=== PATIENT | male | born 1940 | race Caucasian/White ===

== ENCOUNTER 2020-05-21 12:43 | Emergency (ER) | payer MEDICARE, SELFPAY ==
--- NOTE | 2020-05-21 12:45 | XR_ITS ---
WS: [id number] XR chest 1V portable [id number] REASON FOR EXAM: cp FINDINGS: The chest is unchanged compared to 03/28/2019. The heart and mediastinum are within normal limits. The thoracic aorta is normal. Calcified granulomatous changes in both hemithoraces. No active pulmonary parenchymal pleural disease. Moderate degenerative change in the lower thoracic spine and in both shoulders. XR/XR chest 1V portable [id number] IMPRESSION: No acute chest abnormality.
--- NOTE | 2020-05-21 12:45 | ECG_ITS ---
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 Measurements Intervals [place] Rate: 79 P: 62 GA: 189 QRS: 30 QRSD: 79 T: 80 QT: 320 QTc: 369 Interpretive Statements SINUS RHYTHM SEPTAL MYOCARDIAL INFARCTION [40+ ms Q WAVE IN V1/V2], OF INDETERMINATE AGE Compared to ECG 04/28/2018 12:54:01 Myocardial infarct finding now present First degree AV block no longer present T-wave abnormality no longer present Electronically Signed On 05-21-2020 19:29:19 IT GENERALIST by Barb Rea M.D. [email or web address].Dadasouth sunflower county hospitalPocketMobileselect medical [facility].[employer]/store/NU/[id number] hines
[2020-05-21 12:50] VITALS: BP 115/68; PULSE 81; RESP 18; TEMP 36.6; O2SAT 97; BMI 27.3
--- NOTE | 2020-05-21 13:08 | ED_ITS ---
HPI - General Adult General: Chief complaint: General Medical Stated complaint: pressure on chest/weakness Time Seen by Provider: 05/21/20 12:56 Source: patient Mode of arrival: ambulatory Limitations: no limitations History of Present Illness: HPI narrative: 79-year-old male states has been having lower abdominal pain over the last 4 to 5 days. He states he had nausea and lack of appetite as well. States he has had some radiation into his chest. Denies any shortness of breath. Denies any worsening improving factors. He states pain is currently a 7 out of 10. He denies any fevers. Associated symptoms: Reports chest pain, nausea and vomiting; Deny dyspnea, headache(s) or rash Review of Systems Const: Denies: fever(s), chills, body aches or change in appetite Eyes: Denies: blurry vision or eye discomfort ENMT: Denies: throat pain or dental pain Card: Reports: chest pain Resp: Denies: dyspnea GI: Reports: abdominal pain, nausea and vomiting : Denies: dysuria Musc: Denies: neck pain or back pain Skin/Breast: Denies: rash Neuro: Denies: headache(s) Psych: Denies: depression Mark/Lymph: Denies: easy bruising All/Imm: Denies: urticaria Physical Exam Const: COMMON NORMALS: no acute distress, patient oriented x3 and healthy appearing HENMT: COMMON NORMALS: normocephalic and atraumatic HEAD & SCALP: normocephalic and atraumatic Eye: COMMON NORMALS: Equal, round and reactive pupils present and EOMs intact bilaterally PUPIL: Yes Equal, round and reactive pupils present Neck/C-Spine: COMMON NORMALS: full ROM and supple Chest: COMMONS NORMALS: normal inspection of the chest and normal palpation of entire chest wall Resp: COMMON NORMALS: normal respiratory effort, No retractions, No use of accessory muscles and clear to auscultation bilaterally AUSCULTATION: clear to auscultation bilaterally Cardio: COMMON NORMALS: regular rate, regular rhythm and No murmurs present (Cardio) RATE: regular rate RHYTHM: regular rhythm GI: COMMON NORMALS: Normal to inspection, nondistended, normoactive bowel sounds present, Soft to palpation, non-tender and no masses PALPATION: Yes Soft to palpation Extremity: COMMON NORMALS: normal to inspection and full ROM Neuro: COMMON NORMALS: patient oriented x3, moves all extremities and no focal motor deficits Psych: COMMON NORMALS: mental status grossly normal, Normal thought process present and cooperative THOUGHT PROCESS: Normal thought process present Skin: COMMON NORMALS: no rashes or lesions noted and no wounds GENERAL SKIN EXAM: no rashes or lesions noted Course Vital Signs: Vital signs: Vital Signs Temperature 97.8 F 05/21/20 12:50 Pulse Rate 79 05/21/20 16:10 Respiratory Rate 14 05/21/20 16:10 Blood Pressure 129/61 05/21/20 16:10 Pulse Oximetry 99 05/21/20 16:10 MDM - General Adult MDM Narrative: Medical decision making narrative: Patient presents here with abdominal pain chest pain he does have a esophagitis. He also has a duodenitis. This likely causing his pain with swallowing along with chest pain and nausea. I offered him admission he states he rather follow-up outpatient. We will start him on Protonix amoxicillin and clarithromycin and will have him follow-up with Dr. Tai that he likely needs an EGD. He is return to ER if he has any worsening symptoms. He understands and agrees to the plan. Lab Data: Labs: Lab Results 05/21/20 05/21/20 05/21/20 Range/Units 13:16 13:16 13:16 WBC 17.2 H (4.0-10.0) 10^3/ uL RBC 5.01 (4.1-5.3) 10^6/u L Hgb 13.8 (11.7-16.6) g/dL Hct 43.6 (42.0-52.0) % MCV 87.0 (80-94) fL MCH 27.5 L (28.0-34.0) pg MCHC 31.7 (30.0-36.0) g/dL RDW 16.1 H (12.1-15.1) % Plt Count 142 (130-400) 10^3/c mm MPV 12.0 H (7.4-10.4) fL Neut % (Auto) 83.5 % Lymph % (Auto) 11.3 % [place] % (Auto) 4.5 % Eos % (Auto) 0.1 % Baso % (Auto) 0.2 % Neut # (Auto) 14.36 H (1.8-7.7) 10^3/u L Lymph # (Auto) 2.0 (0.8-4.8) 10^3/u L [place] # (Auto) 0.8 (0.2-0.9) 10^3/u L Eos # (Auto) 0.0 (0.0-0.8) 10^3/u L Baso # (Auto) 0.0 (0.0-0.1) 10^3/u L Nucleated RBC % (a uto) 0 % Nucleated RBCs # 0.0 /100WBC Sodium Cancelled Potassium Cancelled Chloride Cancelled Carbon Dioxide Cancelled Anion Gap Cancelled BUN Cancelled Creatinine Cancelled GFR Calculation Cancelled Glucose Cancelled Calculated Osmolal ity Cancelled Calcium Cancelled Total Bilirubin Cancelled AST Cancelled ALT Cancelled Alkaline Phosphata se Cancelled Troponin T Baselin e Cancelled Troponin T 120 Min bradley (0-15) ng/L Delta Troponin T (0-10) ABS# Total Protein Cancelled Albumin Cancelled Globulin Cancelled Lipase Cancelled 05/21/20 05/21/20 05/21/20 Range/Units 14:50 14:50 17:22 WBC (4.0-10.0) 10^3/ uL RBC (4.1-5.3) 10^6/u L Hgb (11.7-16.6) g/dL Hct (42.0-52.0) % MCV (80-94) fL MCH (28.0-34.0) pg MCHC (30.0-36.0) g/dL RDW (12.1-15.1) % Plt Count (130-400) 10^3/c mm MPV (7.4-10.4) fL Neut % (Auto) % Lymph % (Auto) % [place] % (Auto) % Eos % (Auto) % Baso % (Auto) % Neut # (Auto) (1.8-7.7) 10^3/u L Lymph # (Auto) (0.8-4.8) 10^3/u L [place] # (Auto) (0.2-0.9) 10^3/u L Eos # (Auto) (0.0-0.8) 10^3/u L Baso # (Auto) (0.0-0.1) 10^3/u L Nucleated RBC % (a uto) % Nucleated RBCs # /100WBC Sodium 133 L Potassium 4.4 Chloride 97 L Carbon Dioxide 22 Anion Gap 18.4 BUN 47 H Creatinine 1.9 H GFR Calculation Not Reportable Glucose 253 H Calculated Osmolal ity 297 H Calcium 9.5 Total Bilirubin 0.5 AST 9 ALT 14 Alkaline Phosphata se 114 Troponin T Baselin e 51 H Troponin T 120 Min bradley 50.10 H (0-15) ng/L Delta Troponin T -0.90 L (0-10) ABS# Total Protein 7.3 Albumin 4.0 Globulin 3.3 Lipase 44 Imaging Data^: CXR: Attestation: I personally reviewed and interpreted this imaging study as follows: Radiologist's impression: [facility] [address] [place] [id number] XRay Report Signed Patient: Fahad Snow Unit #: [id number] : 1940 Age/Sex: 79 / M ADM Date: 05/21/20 Loc: ER Room/Bed: Attending Dr: Ordering Provider/Ordering MD: Jose Schreiber MD Date of Service: 05/21/20 Procedure(s): XR chest 1V portable [id number] Accession Number(s): [id number] Report Number: [id number] WS: [id number] XR chest 1V portable [id number] REASON FOR EXAM: cp FINDINGS: The chest is unchanged compared to 03/28/2019. The heart and mediastinum are within normal limits. The thoracic aorta is normal. Calcified granulomatous changes in both hemithoraces. No active pulmonary parenchymal pleural disease. Moderate degenerative change in the lower thoracic spine and in both shoulders. XR/XR chest 1V portable [id number] IMPRESSION: No acute chest abnormality. CT Chest: Radiologist's impression: [facility] [address] [place] [address] Scan Report Signed Patient: Fahad Snow Unit #: [id number] : 1940 A cct#:[id number] Age/Sex: 79 / M ADM Date: 05/21/20 Loc: ER Room/Bed: Attending Dr: Ordering Provider/Ordering MD: Jose Schreiber MD Date of Service: 05/21/20 Procedure(s): CT abdomen pelvis w con* [id number] Accession Number(s): [id number] Report Number: [id number] PROCEDURE INFORMATION: Exam: CT Abdomen And Pelvis With Contrast Exam date and time: 05/21/2020 5:14 PM Age: 79 years old Clinical indication: Nausea and vomiting and other: Loss of appetite; Abdominal pain; Prior surgery; Surgery type: Gb; Additional info: Abd pain TECHNIQUE: Imaging protocol: Computed tomography of the abdomen and pelvis with intravenous contrast. Radiation optimization: All CT scans at this facility use at least one of these dose optimization techniques: automated exposure control; mA and/or kV adjustment per patient size (includes targeted exams where dose is matched to clinical indication); or iterative reconstruction. Contrast material: VISI 320; Contrast volume: 95 ml; Contrast route: INTRAVENOUS (IV); COMPARISON: CT Abdomen/Pelvis o [id number] 05/23/2013 7:10 PM RADIATION DOSE METRICS: Total DLP (mGy-cm): 784.13 FINDINGS: Pleural space: There is a trace right pleural effusion. Mediastinal space: There is circumferential wall thickening of the distal esophagus new since the prior exam concerning for esophagitis or esophageal neoplasm. Liver: There is a diffuse decrease in hepatic parenchymal density, consistent with fatty infiltration. There is a 7 mm hypodensity in the liver image 17 that is too small to characterize. Gallbladder and bile ducts: There has been a cholecystectomy. There is no common bile duct dilation. Pancreas: The pancreas is normal. Spleen: Normal. No splenomegaly. Adrenal glands: The adrenal glands are normal. Kidneys and ureters: There is no evidence of hydronephrosis. There is no evidence of renal calcifications. There are multiple renal hypodensities that cannot be further characterized on the current examination. There is atrophy of the right kidney. There is a 4.0 cm midpole simple cyst in the right kidney. No follow-up is necessary. Stomach and bowel: The gastric wall appears thickened but the stomach is also partially collapsed. The wall of the duodenum appears thickened although it is mildly distended with fluid. There is also haziness of the adjacent fat concerning for duodenitis. There is moderately excessive colonic stool content. Mild diverticulosis is present in the distal colon. There is no evidence of colitis/diverticulitis. There is no evidence of intestinal perforation or obstruction. Some of the loops of proximal small bowel demonstrate mild wall thickening and enhancement that suggests mild enteritis. Appendix: No evidence of appendicitis. Intraperitoneal space: Unremarkable. No free air. No significant fluid collection. Vasculature: .The aorta demonstrates moderate atherosclerotic calcification. Lymph nodes: Unremarkable.No enlarged lymph nodes. Urinary bladder: There is nonspecific bladder wall thickening. This may be related to incomplete distention. Reproductive: The prostate demonstrates mild nonspecific enlargement. The seminal vesicles are normal. Bones/joints: There is osteopenia. There are moderate degenerative changes in the spine. No acute bony abnormality. Soft tissues: There are small bilateral fat filled inguinal hernias. CT/CT abdomen pelvis w con* [id number] IMPRESSION: 1. There is circumferential wall thickening of the distal esophagus new since the prior exam concerning for esophagitis or esophageal neoplasm. 2. The wall of the duodenum appears thickened although it is mildly distended with fluid. There is also haziness of the adjacent fat concerning for duodenitis. Endoscopy would be helpful to further evaluate the duodenum and esophagus. 3. Mild wall thickening of the proximal loops of small bowel suggests mild enteritis. EKG Data^: EKG 1: Attestation: I personally reviewed and interpreted this EKG as follows: EKG interpretation date: 05/21/20 EKG interpretation time: 13:40 Interpretation: nsr hr [address] or t wave abnormalities qrs 79 qtc 355 Computer generated interpretation: Chest X-Ray 05/21/20 12:45 IMPRESSION: No acute chest abnormality. Abdomen/Pelvis CT 05/21/20 13:08 IMPRESSION: 1. There is circumferential wall thickening of the distal esophagus new since the prior exam concerning for esophagitis or esophageal neoplasm. 2. The wall of the duodenum appears thickened although it is mildly distended with fluid. There is also haziness of the adjacent fat concerning for duodenitis. Endoscopy would be helpful to further evaluate the duodenum and esophagus. 3. Mild wall thickening of the proximal loops of small bowel suggests mild enteritis. COMMENTS: Consistent with the [employer]'s Incidental Findings Committee white paper (J Am Duyen Radiol 2018): Any incidental renal lesion less than 1 cm or classified as too small to characterize, or any incidental cystic renal lesion characterized as simple-appearing, is likely benign. No follow-up imaging is recommended for these lesions per consensus recommendations based on imaging criteria. Radiation Dose CTDIVOL = (mGy): DLP = 784.13 (mGy-cm) EKG 2: Attestation: I personally reviewed and interpreted this EKG as follows: EKG interpretation date: 05/21/20 EKG interpretation time: 15:14 Interpretation: nsr hr [address] or t wave abnormalities qrs 73 qtc 351 Computer generated interpretation: Chest X-Ray 05/21/20 12:45 IMPRESSION: No acute chest abnormality. Abdomen/Pelvis CT 05/21/20 13:08 IMPRESSION: 1. There is circumferential wall thickening of the distal esophagus new since the prior exam concerning for esophagitis or esophageal neoplasm. 2. The wall of the duodenum appears thickened although it is mildly distended with fluid. There is also haziness of the adjacent fat concerning for duodenitis. Endoscopy would be helpful to further evaluate the duodenum and esophagus. 3. Mild wall thickening of the proximal loops of small bowel suggests mild enteritis. COMMENTS: Consistent with the [employer]'s Incidental Findings Committee white paper (J Am Duyen Radiol 2018): Any incidental renal lesion less than 1 cm or classified as too small to characterize, or any incidental cystic renal lesion characterized as simple-appearing, is likely benign. No follow-up imaging is recommended for these lesions per consensus recommendations based on imaging criteria. Radiation Dose CTDIVOL = (mGy): DLP = 784.13 (mGy-cm) Discharge Plan Discharge Patient Disposition: Home Clinical Impression: Duodenitis, Esophagitis Condition: Stable Prescriptions: New Protonix 40 mg tablet,delayed release (DR/EC) 40 mg PO DAILY Qty: 60 RF: 0 amoxicillin 875 mg tablet 875 mg PO BID Qty: 20 RF: 0 clarithromycin 500 mg tablet 500 mg PO BID 10 Days Qty: 20 RF: 0 No Action atorvastatin 40 mg tablet 40 mg PO DAILY@1000 RF: 0 labetalol 200 mg tablet 200 mg PO BID@1000,1800 RF: 0 pramipexole 0.125 mg tablet 0.125 mg PO TID@10,14,18 RF: 0 glipizide 5 mg tablet 5 mg PO DAILY@1000 RF: 0 lisinopril 20 mg tablet 20 mg PO DAILY@1000 RF: 0 mirtazapine 45 mg tablet 45 mg PO DAILY@1000 RF: 0 folic acid 1 mg tablet 1 mg PO DAILY@1000 RF: 0 hydrochlorothiazide 12.5 mg tablet 12.5 mg PO DAILY@1000 RF: 0 Lantus Solostar U-100 Insulin 100 unit/mL (3 mL) insulin pen 34 unit SUBCUT DAILY@2200 RF: 0 Lumigan 0.01 % drops See Rx Instructions .ROUTE .COMPLEX RF: 0 Discharge Orders: Discharge ED (Routine); Ordered 05/21/20 Ordered By: Jose Schreiber Referrals: Martha Paiz FNP [Primary Care Provider] - Deon Tai MD [Physician] - 1-3 days Discharge Diet: Advance as tolerated Discharge Activity: Resume usual activity Patient Instructions: Abdominal Pain (ED) Coding Level of Care Code ED [place] for Melissa Fwd Exam Comprehensive
[2020-05-21 13:24] LABS: Basophils % 0.2 %; Eosinophils % 0.1 %; Hematocrit 43.6 % (42.0-52.0); Hemoglobin 13.8 g/dL (11.7-16.6); Lymphocytes % 11.3 %; Mean Corpuscular HGB Conc 31.7 g/dL (30.0-36.0); Mean Corpuscular Hemoglobin 27.5 pg (28.0-34.0); Monocytes # 0.8 10^3/uL (0.2-0.9); Monocytes % 4.5 %; Neutrophils # 14.36 10^3/uL (1.8-7.7); Neutrophils % 83.5 %; Nucleated Red Blood Cells % 0 %; Platelet Count 142 10^3/cmm (130-400); Red Blood Count 5.01 10^6/uL (4.1-5.3); Red Cell Distribution Width 16.1 % (12.1-15.1); White Blood Count 17.2 10^3/uL (4.0-10.0)
[2020-05-21 13:28] VITALS: BP 109/68; PULSE 82; RESP 21; O2SAT 98
--- NOTE | 2020-05-21 14:45 | ECG_ITS ---
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 Measurements Intervals [place] Rate: 75 P: 66 WI: 202 QRS: 29 QRSD: 73 T: 58 QT: 321 QTc: 361 Interpretive Statements SINUS RHYTHM SEPTAL MYOCARDIAL INFARCTION [40+ ms Q WAVE IN V1/V2], OF INDETERMINATE AGE Compared to ECG 04/28/2018 12:54:01 Myocardial infarct finding now present First degree AV block no longer present T-wave abnormality no longer present Electronically Signed On 05-21-2020 20:00:37 SALES PLANNING ANALYST by Barb Rea M.D. [email or web address] for women and infantsEzuzaveterans health administration.[employer]/store/OM/[id number]/[id number]
[2020-05-21 15:16] VITALS: BP 109/63; PULSE 79; RESP 16; O2SAT 97
[2020-05-21 15:33] LABS: Alanine Aminotransferase 14 U/L (0-41); Alkaline Phosphatase 114 IU/L (40-130); Anion Gap 18.4 (5-19); Aspartate Amino Transferase 9 U/L (0-40); Blood Urea Nitrogen 47 mg/dL (8-23); Calcium 9.5 mg/dL (8.5-10.5); Carbon Dioxide 22 mmol/L (22-29); Chloride 97 mmol/L (98-107); Globulin 3.3 g/dL (1.3-4.6); Glucose 253 mg/dL (65-115); Lipase 44 U/L (13-60); Osmolality Calculated 297 mOsm/kg (285-295); Potassium 4.4 mmol/L (3.5-5.1); Sodium 133 mmol/L (136-145); Total Bilirubin 0.5 mg/dL (0.15-1.2); Total Protein 7.3 g/dL (6.6-8.7); Troponin(5th) Baseline 51 ng/L (0-15)
--- NOTE | 2020-05-21 15:43 | PC.NURSE ---
pt phone number [phone] cell phone. pt gives verbal consent to speak to about care/treatment.
[2020-05-21 16:10] VITALS: BP 129/61; PULSE 79; RESP 14; O2SAT 99
[2020-05-21] MEDS: iodixanol 320 mg/mL 100mL Btl IV (18:01)
[2020-05-21] MEDS: sodium chloride 0.9% 1,000 ML 999 ML IV (18:33)
[2020-05-21 20:03] VITALS: BP 102/67; PULSE 67; RESP 18; O2SAT 97
--- NOTE | 2020-05-22 12:02 | DCPLANNER ---
assistant distribution manager had message to schedule a follow up appointment for patient General Surgery. assistant distribution manager emailed both Wendy and Reema at general surgery with patients information. Patients information will be printed and reviewed. Clinic will call patient with appointment information.
[2020-05-23 07:54] LABS: Coronavirus Lab Test PTC Negative
--- NOTE | 2020-05-23 08:22 | PC.NURSE ---
Pt called and notified of negative COVID result.
--- NOTE | 2020-05-23 11:50 | DCPLANNER ---
Patient has a follow up appointment scheduled for Sunday, June 14, 2020 at 10:[address] Avalos. Clinic will call patient with appointment information.
--- NOTE | 2020-07-09 08:34 | DCPLANNER ---
Patient had a follow up appointment scheduled for 06.14.20 with general surgery - patient did attend appointment.
== END 2020-05-21 20:05 | disposition home or self-care (01) ==
PROVIDERS: Emergency Provider Emergency Medicine; PCP Nurse Practitioner Family
DX: K29.80 Duodenitis without bleeding (principal); K20.90 Esophagitis, unspecified without bleeding; Z79.4 Long term (current) use of insulin
CPT/HCPCS: 12345; 36415; 71045; 74177; 80053; 83690; 84484; 85025; 87635; 93005; 96360; 99283; 99284; J7030; Q9967

== ENCOUNTER 2021-06-19 02:49 | Inpatient (IN) | payer MEDICARE, SELFPAY ==
[2021-06-19] VITALS (20 sets, daily range): BP systolic 97–188; BP diastolic 43–89; PULSE 55–101; RESP 13–24; TEMP 35.4–38.4; O2SAT 91–100; BMI 25.0; BMI 25.1
--- NOTE | 2021-06-19 02:53 | W.ED.SOB ---
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 Surgical History H/O colonoscopy 30 yrs ago History of tonsillectomy Hx of cholecystectomy Family History Other Cancer Denies family history of Anesthesia complication Bleeding disorder Social History Smoking and tobacco status: former smoker Alcohol intake: former Household members: spouse Marital status: Current occupational status: retired History of recent travel: No Course Vital Signs: Vital signs: Vital Signs Temperature 95.8 F L 06/19/21 05:06 Pulse Rate 69 06/19/21 05:06 Respiratory Rate 13 06/19/21 05:06 Blood Pressure 188/89 06/19/21 02:51 Pulse Oximetry 97 06/19/21 05:06 MDM - SOB/Dyspnea Lab Data: Labs: Lab Results 06/19/21 06/19/21 06/19/21 02:50 02:50 02:50 WBC 6.3 10^3/uL 10^3/ uL (4.0-10.0) RBC 4.08 10^6/uL L 10 ^6/uL (4.1-5.3) Hgb 11.6 g/dL L g/dL (11.7-16.6) Hct 36.8 % L % (42.0-52.0) MCV 90.2 fl fl (80-94) MCH 28.4 pg pg (28.0-34.0) MCHC 31.5 g/dL g/dL (30.0-36.0) RDW 14.8 % % (12.1-15.1) Plt Count 185 10^3/cmm 10^3 /cmm (130-400) MPV 11.0 fL H fL (7.4-10.4) Neut % (Auto) 66.4 % % Lymph % (Auto) 25.2 % % [place] % (Auto) 5.9 % % Eos % (Auto) 1.6 % % Baso % (Auto) 0.6 % % Neut # (Auto) 4.18 10^3/uL 10^3 /uL (1.8-7.7) Lymph # (Auto) 1.6 10^3/uL 10^3/ uL (0.8-4.8) [place] # (Auto) 0.4 10^3/uL 10^3/ uL (0.2-0.9) Eos # (Auto) 0.1 10^3/uL 10^3/ uL (0.0-0.8) Baso # (Auto) 0.0 10^3/uL 10^3/ uL (0.0-0.1) Nucleated RBC % (a uto) 0 % % Nucleated RBCs # 0.0 /100WBC /100W BC Specimen Type Sample Site ABG pH ABG pCO2 ABG pO2 ABG HCO3 ABG Base Excess Tj Test Hematocrit O2 Delivery Device O2 Liters/Min Industrial Security Analyst ID Sodium 137 mmol/L mmol/L (136-145) Potassium 4.4 mmol/L mmol/L (3.5-5.1) Chloride 102 mmol/L mmol/L (98-107) Carbon Dioxide 16 mmol/L L mmol/ L (22-29) Anion Gap 23.4 H (5-19) BUN 33 mg/dL H mg/dL (8-23) Creatinine 2.4 mg/dL H mg/dL (0.7-1.2) GFR Calculation Not Reportable Glucose 340 mg/dL H mg/dL (65-115) POC Glucose Calculated Osmolal ity 305 mOsm/kg H mOs m/kg (285-295) Lactic Acid Calcium 7.9 mg/dL L mg/dL (8.5-10.5) Total Bilirubin 0.3 mg/dL mg/dL (0.15-1.2) AST 16 U/L U/L (0-40) ALT 16 U/L U/L (0-41) Alkaline Phosphata se 103 IU/L IU/L (40-130) Troponin T Baselin e 56 ng/L H ng/L (0-15) Troponin T 120 Min [place] Troponin T C-Reactive Protein 15.3 mg/L H mg/L (0.0-4.9) NT-Pro-B Natriuret Pep 181 pg/mL pg/mL (0-450) Total Protein 6.5 g/dL L g/dL (6.6-8.7) Albumin 4.0 g/dL g/dL (3.5-5.2) Globulin 2.5 g/dL g/dL (1.3-4.6) Procalcitonin 0.12 ng/mL ng/mL (0-0.5) TSH 1.95 uIU/mL uIU/m L (0.27-4.20) 06/19/21 06/19/21 06/19/21 02:53 02:55 04:34 WBC RBC Hgb Hct MCV MCH MCHC RDW Plt Count MPV Neut % (Auto) Lymph % (Auto) [place] % (Auto) Eos % (Auto) Baso % (Auto) Neut # (Auto) Lymph # (Auto) [place] # (Auto) Eos # (Auto) Baso # (Auto) Nucleated RBC % (a uto) Nucleated RBCs # Specimen Type Arterial Sample Site Brachial, left ABG pH 7.35 (7.35-7.45) ABG pCO2 37.2 mmHg mmHg (35-45) ABG pO2 70.2 mmHg L mmHg (80.0-100.0) ABG HCO3 20.7 mmol/L L mmo l/L (22-26) ABG Base Excess -4.3 mmol/L L mmo l/L (-2.0-2.0) Tj Test N/a Hematocrit 37.1 % L % (42-52) O2 Delivery Device Nc O2 Liters/Min 5.0 % % Industrial Security Analyst ID [id number] Sodium Potassium Chloride Carbon Dioxide Anion Gap BUN Creatinine GFR Calculation Glucose POC Glucose 97 mg/dL mg/dL 77 mg/dL mg/dL (70-110) (70-110) Calculated Osmolal ity Lactic Acid Calcium Total Bilirubin AST ALT Alkaline Phosphata se Troponin T Baselin e Troponin T 120 Min [place] Troponin T C-Reactive Protein NT-Pro-B Natriuret Pep Total Protein Albumin Globulin Procalcitonin TSH 06/19/21 06/19/21 04:37 04:37 WBC RBC Hgb Hct MCV MCH MCHC RDW Plt Count MPV Neut % (Auto) Lymph % (Auto) [place] % (Auto) Eos % (Auto) Baso % (Auto) Neut # (Auto) Lymph # (Auto) [place] # (Auto) Eos # (Auto) Baso # (Auto) Nucleated RBC % (a uto) Nucleated RBCs # Specimen Type Sample Site ABG pH ABG pCO2 ABG pO2 ABG HCO3 ABG Base Excess Tj Test Hematocrit O2 Delivery Device O2 Liters/Min Industrial Security Analyst ID Sodium Potassium Chloride Carbon Dioxide Anion Gap BUN Creatinine GFR Calculation Glucose POC Glucose Calculated Osmolal ity Lactic Acid 0.9 mmol/L mmol/L (0.5-2.2) Calcium Total Bilirubin AST ALT Alkaline Phosphata se Troponin T Baselin e Troponin T 120 Min [place] 45.92 ng/L H ng/L (0-15) [place] Troponin T -10.08 ABS# L ABS # (0-10) C-Reactive Protein NT-Pro-B Natriuret Pep Total Protein Albumin Globulin Procalcitonin TSH Discharge Plan Discharge Prescriptions: No Action labetalol 200 mg tablet 200 mg PO BID@1000,1800 RF: 0 pramipexole 0.125 mg tablet 0.125 mg PO TID@10,14,18 RF: 0 glipizide 5 mg tablet 10 mg PO DAILY@1000 RF: 0 lisinopril 20 mg tablet 20 mg PO DAILY@1000 RF: 0 mirtazapine 45 mg tablet 45 mg PO DAILY@1000 RF: 0 folic acid 1 mg tablet 1 mg PO DAILY@1000 RF: 0 hydrochlorothiazide 12.5 mg tablet 12.5 mg PO DAILY@1000 RF: 0 Lantus Solostar U-100 Insulin 100 unit/mL (3 mL) insulin pen 34 unit SUBCUT DAILY@2200 RF: 0 Lumigan 0.01 % drops See Rx Instructions .ROUTE .COMPLEX RF: 0 pantoprazole [Protonix] 40 mg tablet,delayed release (DR/EC) 40 mg PO DAILY Qty: 60 RF: 0 Coding Level of Care Code 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 Fwd Documented by User: Kerry Jalloh MD 06/19/21 05:14 PFSH ED PFSH: Medical History CVA (cerebral vascular accident) Diabetes GERD (gastroesophageal reflux disease) 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 Surgical History H/O colonoscopy 30 yrs ago History of tonsillectomy Hx of cholecystectomy Family History Other Cancer Denies family history of Anesthesia complication Bleeding disorder Social History Smoking and tobacco status: former smoker Alcohol intake: former Household members: spouse Marital status: Current occupational status: retired History of recent travel: No Course Vital Signs: Vital signs: Vital Signs Temperature 95.8 F L 06/19/21 05:06 Pulse Rate 69 06/19/21 05:06 Respiratory Rate 13 06/19/21 05:06 Blood Pressure 188/89 06/19/21 02:51 Pulse Oximetry 97 06/19/21 05:06 MDM - SOB/Dyspnea Lab Data: Labs: Lab Results 06/19/21 06/19/21 06/19/21 02:50 02:50 02:50 WBC 6.3 10^3/uL 10^3/ uL (4.0-10.0) RBC 4.08 10^6/uL L 10 ^6/uL (4.1-5.3) Hgb 11.6 g/dL L g/dL (11.7-16.6) Hct 36.8 % L % (42.0-52.0) MCV 90.2 fl fl (80-94) MCH 28.4 pg pg (28.0-34.0) MCHC 31.5 g/dL g/dL (30.0-36.0) RDW 14.8 % % (12.1-15.1) Plt Count 185 10^3/cmm 10^3 /cmm (130-400) MPV 11.0 fL H fL (7.4-10.4) Neut % (Auto) 66.4 % % Lymph % (Auto) 25.2 % % [place] % (Auto) 5.9 % % Eos % (Auto) 1.6 % % Baso % (Auto) 0.6 % % Neut # (Auto) 4.18 10^3/uL 10^3 /uL (1.8-7.7) Lymph # (Auto) 1.6 10^3/uL 10^3/ uL (0.8-4.8) [place] # (Auto) 0.4 10^3/uL 10^3/ uL (0.2-0.9) Eos # (Auto) 0.1 10^3/uL 10^3/ uL (0.0-0.8) Baso # (Auto) 0.0 10^3/uL 10^3/ uL (0.0-0.1) Nucleated RBC % (a uto) 0 % % Nucleated RBCs # 0.0 /100WBC /100W BC Specimen Type Sample Site ABG pH ABG pCO2 ABG pO2 ABG HCO3 ABG Base Excess Tj Test Hematocrit O2 Delivery Device O2 Liters/Min Industrial Security Analyst ID Sodium 137 mmol/L mmol/L (136-145) Potassium 4.4 mmol/L mmol/L (3.5-5.1) Chloride 102 mmol/L mmol/L (98-107) Carbon Dioxide 16 mmol/L L mmol/ L (22-29) Anion Gap 23.4 H (5-19) BUN 33 mg/dL H mg/dL (8-23) Creatinine 2.4 mg/dL H mg/dL (0.7-1.2) GFR Calculation Not Reportable Glucose 340 mg/dL H mg/dL (65-115) POC Glucose Calculated Osmolal ity 305 mOsm/kg H mOs m/kg (285-295) Lactic Acid Calcium 7.9 mg/dL L mg/dL (8.5-10.5) Total Bilirubin 0.3 mg/dL mg/dL (0.15-1.2) AST 16 U/L U/L (0-40) ALT 16 U/L U/L (0-41) Alkaline Phosphata se 103 IU/L IU/L (40-130) Troponin T Baselin e 56 ng/L H ng/L (0-15) Troponin T 120 Min [place] Troponin T C-Reactive Protein 15.3 mg/L H mg/L (0.0-4.9) NT-Pro-B Natriuret Pep 181 pg/mL pg/mL (0-450) Total Protein 6.5 g/dL L g/dL (6.6-8.7) Albumin 4.0 g/dL g/dL (3.5-5.2) Globulin 2.5 g/dL g/dL (1.3-4.6) Procalcitonin 0.12 ng/mL ng/mL (0-0.5) TSH 1.95 uIU/mL uIU/m L (0.27-4.20) 06/19/21 06/19/21 06/19/21 02:53 02:55 04:34 WBC RBC Hgb Hct MCV MCH MCHC RDW Plt Count MPV Neut % (Auto) Lymph % (Auto) [place] % (Auto) Eos % (Auto) Baso % (Auto) Neut # (Auto) Lymph # (Auto) [place] # (Auto) Eos # (Auto) Baso # (Auto) Nucleated RBC % (a uto) Nucleated RBCs # Specimen Type Arterial Sample Site Brachial, left ABG pH 7.35 (7.35-7.45) ABG pCO2 37.2 mmHg mmHg (35-45) ABG pO2 70.2 mmHg L mmHg (80.0-100.0) ABG HCO3 20.7 mmol/L L mmo l/L (22-26) ABG Base Excess -4.3 mmol/L L mmo l/L (-2.0-2.0) Tj Test N/a Hematocrit 37.1 % L % (42-52) O2 Delivery Device Nc O2 Liters/Min 5.0 % % Industrial Security Analyst ID [id number] Sodium Potassium Chloride Carbon Dioxide Anion Gap BUN Creatinine GFR Calculation Glucose POC Glucose 97 mg/dL mg/dL 77 mg/dL mg/dL (70-110) (70-110) Calculated Osmolal ity Lactic Acid Calcium Total Bilirubin AST ALT Alkaline Phosphata se Troponin T Baselin e Troponin T 120 Min [place] Troponin T C-Reactive Protein NT-Pro-B Natriuret Pep Total Protein Albumin Globulin Procalcitonin TSH 06/19/21 06/19/21 04:37 04:37 WBC RBC Hgb Hct MCV MCH MCHC RDW Plt Count MPV Neut % (Auto) Lymph % (Auto) [place] % (Auto) Eos % (Auto) Baso % (Auto) Neut # (Auto) Lymph # (Auto) [place] # (Auto) Eos # (Auto) Baso # (Auto) Nucleated RBC % (a uto) Nucleated RBCs # Specimen Type Sample Site ABG pH ABG pCO2 ABG pO2 ABG HCO3 ABG Base Excess Tj Test Hematocrit O2 Delivery Device O2 Liters/Min Industrial Security Analyst ID Sodium Potassium Chloride Carbon Dioxide Anion Gap BUN Creatinine GFR Calculation Glucose POC Glucose Calculated Osmolal ity Lactic Acid 0.9 mmol/L mmol/L (0.5-2.2) Calcium Total Bilirubin AST ALT Alkaline Phosphata se Troponin T Baselin e Troponin T 120 Min [place] 45.92 ng/L H ng/L (0-15) [place] Troponin T -10.08 ABS# L ABS # (0-10) C-Reactive Protein NT-Pro-B Natriuret Pep Total Protein Albumin Globulin Procalcitonin TSH Discharge Plan Discharge Prescriptions: No Action labetalol 200 mg tablet 200 mg PO BID@1000,1800 RF: 0 pramipexole 0.125 mg tablet 0.125 mg PO TID@10,14,18 RF: 0 glipizide 5 mg tablet 10 mg PO DAILY@1000 RF: 0 lisinopril 20 mg tablet 20 mg PO DAILY@1000 RF: 0 mirtazapine 45 mg tablet 45 mg PO DAILY@1000 RF: 0 folic acid 1 mg tablet 1 mg PO DAILY@1000 RF: 0 hydrochlorothiazide 12.5 mg tablet 12.5 mg PO DAILY@1000 RF: 0 Lantus Solostar U-100 Insulin 100 unit/mL (3 mL) insulin pen 34 unit SUBCUT DAILY@2200 RF: 0 Lumigan 0.01 % drops See Rx Instructions .ROUTE .COMPLEX RF: 0 pantoprazole [Protonix] 40 mg tablet,delayed release (DR/EC) 40 mg PO DAILY Qty: 60 RF: 0 Coding Level of Care Code ED [employer] 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
--- NOTE | 2021-06-19 02:55 | XRR_ITS ---
PROCEDURE INFORMATION: Exam: XR Chest Exam date and time: 06/19/2021 2:55 AM Age: 80 years old Clinical indication: Prior surgery; Surgery type: Gb; Patient HX: states patient choked on dinner last night. Possible aspiration. TECHNIQUE: Imaging protocol: XR of the chest. Views: 1 view. COMPARISON: CR XR chest 1V portable [id number] 05/21/2020 1:11 PM FINDINGS: Lungs: Unremarkable. No consolidation. Pleural spaces: Unremarkable. No pleural effusion. No pneumothorax. Heart/Mediastinum: Unremarkable. No cardiomegaly. Bones/joints: Unremarkable. XR/XR chest 1V portable [id number] IMPRESSION: No acute findings.
--- NOTE | 2021-06-19 02:56 | ECG_ITS ---
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: : 1940 Requested By: Adalid Segura Order Number: [id number] Reading MD: BRODY FRAGA Measurements Intervals [place] Rate: 54 P: 51 [place]: 187 QRS: 62 QRSD: 98 T: 51 QT: 369 QTc: 353 Interpretive Statements SINUS BRADYCARDIA WITH MARKED RHYTHM IRREGULARITY, POSSIBLE NON-CONDUCTED PAC, SA BLOCK, AV BLOCK, OR SINUS PAUSE NONSPECIFIC ST & T-WAVE ABNORMALITY CRITICAL TEST RESULT Compared to ECG 05/21/2020 15:14:32 T-wave abnormality now present Sinus rhythm no longer present Myocardial infarct finding no longer present Electronically Signed On 06-20-2021 18:17:18 INTERNAL AFFAIRS COMMANDER by BRODY FRAGA [id number]
[2021-06-19 02:57] LABS: Glucose Point of Care 97 mg/dL (70-110)
--- NOTE | 2021-06-19 03:01 | CTR_ITS ---
PROCEDURE INFORMATION: Exam: CT Head Without Contrast Exam date and time: 06/19/2021 3:01 AM Age: 80 years old Clinical indication: Altered mental status/memory loss; Patient HX: AMS. states patient was unresponsive in bed this morning. Patient appears lethargic. Hypertensive on monitor. Mildy hypothermic. History of CVA. TECHNIQUE: Imaging protocol: Computed tomography of the head without contrast. Radiation optimization: All CT scans at this facility use at least one of these dose optimization techniques: automated exposure control; mA and/or kV adjustment per patient size (includes targeted exams where dose is matched to clinical indication); or iterative reconstruction. COMPARISON: CT head wo con* [id number] 03/28/2019 10:03 PM RADIATION DOSE METRICS: Total DLP (mGy-cm): 919.03 FINDINGS: Brain: Stable left MCA distribution encephalomalacia. No acute infarct or hemorrhage. Cerebral ventricles: No ventriculomegaly. Paranasal sinuses: Paranasal sinuses are clear. No air-fluid level. Mastoid air cells: Visualized mastoid air cells are clear. Bones/joints: No calvarial or skull base fracture. Soft tissues: Unremarkable. CT/CT head wo con* [id number] IMPRESSION: 1. No acute infarct or hemorrhage. 2. No calvarial or skull base fracture.
[2021-06-19 03:07] LABS: Basophils % 0.6 %; Eosinophils # 0.1 10^3/uL (0.0-0.8); Eosinophils % 1.6 %; Hematocrit 36.8 % (42.0-52.0); Hemoglobin 11.6 g/dL (11.7-16.6); Lymphocytes # 1.6 10^3/uL (0.8-4.8); Lymphocytes % 25.2 %; Mean Corpuscular HGB Conc 31.5 g/dL (30.0-36.0); Mean Corpuscular Hemoglobin 28.4 pg (28.0-34.0); Mean Corpuscular Volume 90.2 fl (80-94); Monocytes # 0.4 10^3/uL (0.2-0.9); Monocytes % 5.9 %; Neutrophils # 4.18 10^3/uL (1.8-7.7); Neutrophils % 66.4 %; Nucleated Red Blood Cells % 0 %; Platelet Count 185 10^3/cmm (130-400); Red Blood Count 4.08 10^6/uL (4.1-5.3); Red Cell Distribution Width 14.8 % (12.1-15.1); White Blood Count 6.3 10^3/uL (4.0-10.0)
[2021-06-19] MEDS: sodium chloride 0.9% 1,000 ML 999 ML IV (03:10)
[2021-06-19 03:34] LABS: Troponin(5th) Baseline 56 ng/L (0-15)
[2021-06-19 03:37] LABS: ABG PCO2 37.2 mmHg (35-45); ABG PH Result 7.35 (7.35-7.45); Arterial Blood Gas Hematocrit 37.1 % (42-52); Base Excess ABG -4.3 mmol/L (-2.0-2.0); Blood Gas Sample Site Brachial, left; Blood Gas Sample Type Arterial; HCO3 ABG 20.7 mmol/L (22-26); Oxygen Device NC; PO2 ABG 70.2 mmHg (80.0-100.0)
[2021-06-19 03:42] LABS: NT Pro B Type Natriuretic Pept 181 pg/mL (0-450); Procalcitonin 0.12 ng/mL (0-0.5); Thyroid Stimulating Hormone 1.95 uIU/mL (0.27-4.20)
[2021-06-19 03:53] LABS: Alanine Aminotransferase 16 U/L (0-41); Alkaline Phosphatase 103 IU/L (40-130); Anion Gap 23.4 (5-19); Aspartate Amino Transferase 16 U/L (0-40); Blood Urea Nitrogen 33 mg/dL (8-23); C Reactive Protein 15.3 mg/L (0.0-4.9); Calcium 7.9 mg/dL (8.5-10.5); Carbon Dioxide 16 mmol/L (22-29); Chloride 102 mmol/L (98-107); Globulin 2.5 g/dL (1.3-4.6); Glucose 340 mg/dL (65-115); Osmolality Calculated 305 mOsm/kg (285-295); Potassium 4.4 mmol/L (3.5-5.1); Sodium 137 mmol/L (136-145); Total Bilirubin 0.3 mg/dL (0.15-1.2); Total Protein 6.5 g/dL (6.6-8.7)
[2021-06-19 04:40] LABS: Glucose Point of Care 77 mg/dL (70-110)
--- NOTE | 2021-06-19 04:56 | ECG_ITS ---
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
[2021-06-19 05:09] LABS: Troponin 5 2HR 45.92 ng/L (0-15)
[2021-06-19 05:10] LABS: Lactic Sepsis W/Reflex 0.9 mmol/L (0.5-2.2)
[2021-06-19 05:12] LABS: Troponin 5 2HR Delta -10.08 ABS# (0-10)
[2021-06-19 05:18] LABS: Glucose Point of Care 98 mg/dL (70-110)
--- NOTE | 2021-06-19 05:29 | ED_ITS ---
HPI - General Adult General: Chief complaint: General Medical Stated complaint: AMS Time Seen by Provider: 06/19/21 02:53 Source: family and EMS Mode of arrival: EMS Limitations: altered mental status (Residual stroke symptoms/aphasia) History of Present Illness: HPI narrative: Mr. 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 Upon initial arrival patient's history is very limited. Per EMS report he has been at his baseline health, he took his insulin and ate less than normal. He was found overnight to be minimally responsive and have increased work of breathing. Upon EMS arrival he was responsive only to painful stimuli and had a blood glucose of 37. He was noted to be hypoxemic on room air with increased work of breathing requiring 15 L via nonrebreather mask. They administered D10 and blood glucose was improved. Patient was found lying in his bed, he does have a small contusion to the head which reportedly was from the process of moving the patient. The patient himself upon initial arrival does not provide much history. Upon arrival of the patient's no other significant changes in health are noted. No baseline oxygen requirement. 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 Partial gastric outlet obstruction Surgical History (Updated 06/19/21 @ 12:24 by Steve Avalos MD) H/O colonoscopy 30 yrs ago H/O esophagogastroduodenoscopy History of tonsillectomy Hx of cholecystectomy Family History Other Cancer Denies family history of Anesthesia complication Bleeding disorder Social History Smoking and tobacco status: former smoker Alcohol intake: former Household members: spouse Marital status: Current occupational status: retired History of recent travel: No Physical Exam Const: COMMON NORMALS: alert GENERAL APPEARANCE: ill appearing HENMT: COMMON NORMALS: normocephalic, external ears normal and Normal external nose present HEAD & SCALP: normocephalic and contusion (Left eyebrow region) NOSE: Normal external nose present EXTERNAL EAR: Yes external ears normal THROAT: posterior oropharynx normal Eye: COMMON NORMALS: conjunctivae normal CONJUNCTIVA: Yes conjunctivae normal SCLERA: sclerae normal Neck/C-Spine: COMMON NORMALS: supple GENERAL: Yes trachea midline Resp: EFFORT & INSPECTION: Yes tachypneic and Yes respiratory distress AUSCULTATION: rhonchi right lower OTHER: Supplemental oxygen in place Cardio: COMMON NORMALS: regular rate and regular rhythm RATE: regular rate RHYTHM: regular rhythm OTHER: No peripheral edema GI: COMMON NORMALS: Soft to palpation PALPATION: Yes Soft to palpation and No Tenderness to palpation present (GI) PERCUSSION: normal to percussion Extremity: GENERAL: Yes normal exam except as noted and No edema Neuro: SENSORIUM/ORIENTATION: Yes alert OTHER: Likely baseline reported aphasia as well as right-sided deficits. Psych: OTHER: Appears to appropriately regard and follows commands. Calm, cooperative. Course ED course: - Patient was seen and evaluated by me at bedside - Patient placed on cardiac monitors, IV access obtained - Initial evaluation notable for somewhat ill appearance, coarse breath sounds with new oxygen requirement, patient reportedly nonverbal at baseline and provides limited history secondary to this (resulting from prior stroke) - Labs notable for no leukocytosis, mildly decreased hemoglobin of unclear etiology. Metabolic panel with evidence of likely dehydration, elevated creatinine above baseline. Glucose is elevated likely secondary to infusion. Delta troponin negative. - Imaging notable for negative head CT. Head CT warranted given mental status change and limited history with possible head trauma. Chest x-ray notable for suspected aspiration pneumonia. - Upon serial reexamination after treatment the patient was mildly improved with overall clinical appearance improving and down titration from 15 L nonrebreather mask to nasal cannula oxygen though patient still becomes markedly distressed with tachypnea and hypoxemia when oxygen removed - Based on patient history, evaluation, labs, and imaging as interpreted the most likely cause of the patient's condition is hypoglycemia episode possibly secondary to taking normal insulin without completion of full meal resulting in aspiration pneumonia with hypoxemia and new oxygen requirement. - The results of ED evaluation were discussed with the patient including plan for admission due to requirement for level of care not available if discharged to prevent significant worsening/deterioration. - Hospitalist service contacted and agreed admit the patient. Discussed empiric antibiotic therapy for suspected aspiration pneumonia, admitting physician will take care of orders for antibiotics as clinically indicated. - Patient was admitted without further deterioration or significant events. Note: Click bubbles or prepopulated almean in note writing are used for assistance with data collection and billing and are inherently more limited than narrative and other text portions of this note. Please use narrative for additional clinical history and defer to narrative/free test for any case of contradictory information. If information appears in only free text or click bubble it should be considered present or absent as reported. Please contact note machine sign writer for clarifications of clinical information or contradictory information. MDM is a brief summary, contradictory or erroneous seeming information should be clarified and full note should be reviewed. Vital Signs: Vital signs: Vital Signs Temperature 98.4 F 06/23/21 04:00 Pulse Rate 69 06/23/21 14:23 Respiratory Rate 20 H 06/23/21 14:23 Blood Pressure 138/71 06/23/21 14:23 Pulse Oximetry 94 06/23/21 14:23 MDM - General Adult MDM Narrative: Medical decision making narrative: 80-year-old gentleman with history of diabetes found to be unresponsive with hypoglycemia. Suspected etiology is not eating enough after taking insulin. Patient hypoxemic for EMS on 15 L via nonrebreather. Ill on appearance initially however overall clinical appearance improved throughout ED stay. Patient still has new oxygen requireme nt suspected secondary to aspiration pneumonia. Patient requires admission for further evaluation and management. Medical Records: Attestation: I reviewed the patient's medical records. Lab Data: Attestation: I reviewed the patient's lab results. Labs: Lab Results 06/19/21 06/19/21 06/19/21 02:50 02:50 02:50 WBC 6.3 10^3/uL 10^3/ uL (4.0-10.0) RBC 4.08 10^6/uL L 10 ^6/uL (4.1-5.3) Hgb 11.6 g/dL L g/dL (11.7-16.6) Hct 36.8 % L % (42.0-52.0) MCV 90.2 fl fl (80-94) MCH 28.4 pg pg (28.0-34.0) MCHC 31.5 g/dL g/dL (30.0-36.0) RDW 14.8 % % (12.1-15.1) Plt Count 185 10^3/cmm 10^3 /cmm (130-400) MPV 11.0 fL H fL (7.4-10.4) Neut % (Auto) 66.4 % % Lymph % (Auto) 25.2 % % [place] % (Auto) 5.9 % % Eos % (Auto) 1.6 % % Baso % (Auto) 0.6 % % Neut # (Auto) 4.18 10^3/uL 10^3 /uL (1.8-7.7) Lymph # (Auto) 1.6 10^3/uL 10^3/ uL (0.8-4.8) [place] # (Auto) 0.4 10^3/uL 10^3/ uL (0.2-0.9) Eos # (Auto) 0.1 10^3/uL 10^3/ uL (0.0-0.8) Baso # (Auto) 0.0 10^3/uL 10^3/ uL (0.0-0.1) Nucleated RBC % (a uto) 0 % % Nucleated RBCs # 0.0 /100WBC /100W BC Specimen Type Sample Site ABG pH ABG pCO2 ABG pO2 ABG HCO3 ABG Base Excess Tj Test Hematocrit O2 Delivery Device O2 Liters/Min Gymnastics Coach ID Sodium 137 mmol/L mmol/L (136-145) Potassium 4.4 mmol/L mmol/L (3.5-5.1) Chloride 102 mmol/L mmol/L (98-107) Carbon Dioxide 16 mmol/L L mmol/ L (22-29) Anion Gap 23.4 H (5-19) BUN 33 mg/dL H mg/dL (8-23) Creatinine 2.4 mg/dL H mg/dL (0.7-1.2) GFR Calculation Not Reportable Glucose 340 mg/dL H mg/dL (65-115) POC Glucose Calculated Osmolal ity 305 mOsm/kg H mOs m/kg (285-295) Lactic Acid Calcium 7.9 mg/dL L mg/dL (8.5-10.5) Total Bilirubin 0.3 mg/dL mg/dL (0.15-1.2) AST 16 U/L U/L (0-40) ALT 16 U/L U/L (0-41) Alkaline Phosphata se 103 IU/L IU/L (40-130) Troponin T Baselin e 56 ng/L H ng/L (0-15) Troponin T 120 Min [place] Troponin T C-Reactive Protein 15.3 mg/L H mg/L (0.0-4.9) NT-Pro-B Natriuret Pep 181 pg/mL pg/mL (0-450) Total Protein 6.5 g/dL L g/dL (6.6-8.7) Albumin 4.0 g/dL g/dL (3.5-5.2) Globulin 2.5 g/dL g/dL (1.3-4.6) Procalcitonin 0.12 ng/mL ng/mL (0-0.5) TSH 1.95 uIU/mL uIU/m L (0.27-4.20) Coronavirus 229E ( PCR) SARS-CoV-2 (PCR) 06/19/21 06/19/21 06/19/21 02:53 02:55 04:34 WBC RBC Hgb Hct MCV MCH MCHC RDW Plt Count MPV Neut % (Auto) Lymph % (Auto) [place] % (Auto) Eos % (Auto) Baso % (Auto) Neut # (Auto) Lymph # (Auto) [place] # (Auto) Eos # (Auto) Baso # (Auto) Nucleated RBC % (a uto) Nucleated RBCs # Specimen Type Arterial Sample Site Brachial, left ABG pH 7.35 (7.35-7.45) ABG pCO2 37.2 mmHg mmHg (35-45) ABG pO2 70.2 mmHg L mmHg (80.0-100.0) ABG HCO3 20.7 mmol/L L mmo l/L (22-26) ABG Base Excess -4.3 mmol/L L mmo l/L (-2.0-2.0) Tj Test N/a Hematocrit 37.1 % L % (42-52) O2 Delivery Device Nc O2 Liters/Min 5.0 % % Gymnastics Coach ID [id number] Sodium Potassium Chloride Carbon Dioxide Anion Gap BUN Creatinine GFR Calculation Glucose POC Glucose 97 mg/dL mg/dL 77 mg/dL mg/dL (70-110) (70-110) Calculated Osmolal ity Lactic Acid Calcium Total Bilirubin AST ALT Alkaline Phosphata se Troponin T Baselin e Troponin T 120 Min [place] Troponin T C-Reactive Protein NT-Pro-B Natriuret Pep Total Protein Albumin Globulin Procalcitonin TSH Coronavirus 229E ( PCR) SARS-CoV-2 (PCR) 06/19/21 06/19/21 06/19/21 04:37 04:37 04:37 WBC RBC Hgb Hct MCV MCH MCHC RDW Plt Count MPV Neut % (Auto) Lymph % (Auto) [place] % (Auto) Eos % (Auto) Baso % (Auto) Neut # (Auto) Lymph # (Auto) [place] # (Auto) Eos # (Auto) Baso # (Auto) Nucleated RBC % (a uto) Nucleated RBCs # Specimen Type Sample Site ABG pH ABG pCO2 ABG pO2 ABG HCO3 ABG Base Excess Tj Test Hematocrit O2 Delivery Device O2 Liters/Min Gymnastics Coach ID Sodium Potassium Chloride Carbon Dioxide Anion Gap BUN Creatinine GFR Calculation Glucose POC Glucose Calculated Osmolal ity Lactic Acid 0.9 mmol/L mmol/L (0.5-2.2) Calcium Total Bilirubin AST ALT Alkaline Phosphata se Troponin T Baselin e Troponin T 120 Min [place] 45.92 ng/L H ng/L (0-15) [place] Troponin T -10.08 ABS# L ABS # (0-10) C-Reactive Protein NT-Pro-B Natriuret Pep 136 pg/mL pg/mL (0-450) Total Protein Albumin Globulin Procalcitonin TSH Coronavirus 229E ( PCR) SARS-CoV-2 (PCR) 06/19/21 06/19/21 05:06 05:13 WBC RBC Hgb Hct MCV MCH MCHC RDW Plt Count MPV Neut % (Auto) Lymph % (Auto) [place] % (Auto) Eos % (Auto) Baso % (Auto) Neut # (Auto) Lymph # (Auto) [place] # (Auto) Eos # (Auto) Baso # (Auto) Nucleated RBC % (a uto) Nucleated RBCs # Specimen Type Sample Site ABG pH ABG pCO2 ABG pO2 ABG HCO3 ABG Base Excess Tj Test Hematocrit O2 Delivery Device O2 Liters/Min Gymnastics Coach ID Sodium Potassium Chloride Carbon Dioxide Anion Gap BUN Creatinine GFR Calculation Glucose POC Glucose 98 mg/dL mg/dL (70-110) Calculated Osmolal ity Lactic Acid Calcium Total Bilirubin AST ALT Alkaline Phosphata se Troponin T Baselin e Troponin T 120 Min [place] Troponin T C-Reactive Protein NT-Pro-B Natriuret Pep Total Protein Albumin Globulin Procalcitonin TSH Coronavirus 229E ( PCR) Not detected (NOT DETECT) SARS-CoV-2 (PCR) Not detected (NOT DETECT) EKG Data^: EKG 1: Attestation: I personally reviewed and interpreted this EKG as follows: EKG interpretation date: 06/19/21 EKG interpretation time: 03:08 Interpretation: Twelve-lead EKG shows a regular rhythm at a rate of 58. SC interval 205, QRS duration 95, QTc 400. Normal axis. Interpretation: Sinus rhythm, limited interpretation secondary to baseline ar tifact. Computer generated interpretation: Head CT 06/19/21 03:01 IMPRESSION: 1. No acute infarct or hemorrhage. 2. No calvarial or skull base fracture. Chest/Abdomen/Pelvis CT 06/19/21 07:42 IMPRESSION: Extensive coronary artery disease. Resolution of distal esophagus mural edema. Bilateral lung opacities compatible with subacute pneumonitis. Interval development of gastric outlet obstruction which appears to be secondary to progression of duodenal abnormality seen on the previous examination which appeared to be mural edema/inflammation. There are no additional findings of the duodenum to indicate penetrating ulcer or pancreatic abnormality. No mass is identified. Chest X-Ray 06/19/21 13:38 IMPRESSION: Left lower lobe infiltrate becoming more evident. No other significant finding. KUB X-Ray 06/19/21 13:38 IMPRESSION: Continued distention of the stomach. Nonspecific ascitic small bowel gas pattern. No definite acute abnormality. Pulmonary Perfusion Imaging 06/21/21 17:15 IMPRESSION: Normal perfusion. No evidence of pulmonary embolism. EKG 2: Attestation: I personally reviewed and interpreted this EKG as follows: EKG interpretation date: 06/19/21 EKG interpretation time: 04:55 Interpretation: Twelve-lead EKG shows a regular rhythm at a rate of 67. SC interval 182, QRS duration 83, QTc 421. Interpretation: Sinus rhythm. Nonspecific ST segment abnormalities. Normal axis. Computer generated interpretation: Head CT 06/19/21 03:01 IMPRESSION: 1. No acute infarct or hemorrhage. 2. No calvarial or skull base fracture. Chest/Abdomen/Pelvis CT 06/19/21 07:42 IMPRESSION: Extensive coronary artery disease. Resolution of distal esophagus mural edema. Bilateral lung opacities compatible with subacute pneumonitis. Interval development of gastric outlet obstruction which appears to be secondary to progression of duodenal abnormality seen on the previous examination which appeared to be mural edema/inflammation. There are no additional findings of the duodenum to indicate penetrating ulcer or pancreatic abnormality. No mass is identified. Chest X-Ray 06/19/21 13:38 IMPRESSION: Left lower lobe infiltrate becoming more evident. No other significant finding. KUB X-Ray 06/19/21 13:38 IMPRESSION: Continued distention of the stomach. Nonspecific ascitic small bowel gas pattern. No definite acute abnormality. Pulmonary Perfusion Imaging 06/21/21 17:15 IMPRESSION: Normal perfusion. No evidence of pulmonary embolism. Discharge Plan Discharge Patient Disposition: Placed in Observation Admit Provider: Kerry Jalloh Clinical Impression: Hypoglycemic episode in patient with diabetes mellitus, Aspiration pneumonitis, Hypoxemia Discharge Diet: Cardiac Discharge Activity: Resume usual activity Coding Level of Care Code ED Vegetable Preparer for Chg Fwd Exam Comprehensive
[2021-06-19 07:04] LABS: Adenovirus Not Detected (NOT DETECT); Chlamydia Pneumoniae Not Detected (NOT DETECT); Coronavirus 229E,HKU1,NL63,OC4 Not Detected (NOT DETECT); Human Metapneumovirus Not Detected (NOT DETECT); Human Rhinovirus/Enterovirus Not Detected (NOT DETECT); Influenza A Not Detected (NOT DETECT); Influenza A H1 Not Detected (NOT DETECT); Influenza A H1-2009 Not Detected (NOT DETECT); Influenza A H3 Not Detected (NOT DETECT); Influenza B Not Detected (NOT DETECT); Mycoplasma Pneumoniae Not Detected (NOT DETECT); Parainfluenza Virus Type 1 Not Detected (NOT DETECT); Parainfluenza Virus Type 2 Not Detected (NOT DETECT); Parainfluenza Virus Type 3 Not Detected (NOT DETECT); Parainfluenza Virus Type 4 Not Detected (NOT DETECT); Respiratory Syncytial Virus A Not Detected (NOT DETECT); Respiratory Syncytial Virus B Not Detected (NOT DETECT); SARS-COV-2 Not Detected (NOT DETECT)
--- NOTE | 2021-06-19 07:42 | CT_ITS ---
WS: [id number] CT chest abd pel wo con REASON FOR EXAM: f/up esophageal mass from 2019, evaluate for obstruction IV CONTRAST ADMINISTERED: Noncontrast TOTAL EXAM DLP: 1629.[address] scans at [facility] use at least one of these dose optimization techniques: automat ed exposure control; mA and/or kV adjustment per patient size (includes targeted exams where dose is matched to clinical indication); or iterative reconstruction. FINDINGS: CHEST: No mediastinal or hilar mass identified. No abnormality of the thoracic aorta. Extensive coronary artery calcifications. Wall thickening of the esophagus seen on previous CT scan of 05/21/2020 has resolved. Bilateral lower lobe and right upper lobe groundglass and reticular lung opacities which in retrospec t are present on the chest x-ray of 06/19/2021 at 3:00 AM. No pleural effusion. Moderate degenerative spondylosis in the mid and lower thoracic spine. ABDOMEN: Gross distention of the stomach with mostly gas and some dependent fluid. This appears to be secondar y to gastric outlet obstruction related to progression of duodenal abnormality noted on the previous examination. The remainder of the examination demonstrates no acute abnormality and no significant interval change compared to the previous examination of 05/21/2020. PELVIS: The pelvis is unchanged compared to the previous examination of 05/21/2020 with no acute abnormality. CT/CT chest abd pel wo con IMPRESSION: Extensive coronary artery disease. Resolution of distal esophagus mural edema. Bilateral lung opacities compatible with subacute pneumonitis. Interval development of gastric outlet obstruction which appears to be secondar y to progression of duodenal abnormality seen on the previous examination which appeared to be mural edema/inflammation. There are no additional findings of t he duodenum to indicate penetrating ulcer or pancreatic abnormality. No mass is identified.
--- NOTE | 2021-06-19 07:49 | USCV_ITS ---
Fahad Snow Age: 80 Gender: M : 1940 Exam Date: 06/19/2021 08:21 Ordering Phys: Kerry Jalloh MD Technologist: CARINE Exam Location: [facility] [place]_ Indication: PAIN HISTORY: Lower extremity pain. PROCEDURES: Venous duplex imaging was performed in bilateral lower extremities. The following venous structures were evaluated: common femoral vein, profunda vein, proximal portion of the greater saphenous vein, superficial femoral vein, and the popliteal vein. In addition, the posterior tibial and peroneal trunk were evaluated. Serial compression, augmentation maneuvers, and spectral Doppler flow evaluation were performed. FINDINGS: + THROMBUS SEEN IN LEFT GSV JX. ALL OTHER VEINS APPEAR PATENT BILAT. CONCLUSIONS Superficial thrombus Left GSV at the proximal junction. Remainder of Bilateral LE veins are patent. Michael Clifton MD (Electronically Signed) Final Date: 19 June 2021 12:43 S
--- NOTE | 2021-06-19 07:53 | P.HP_ITS ---
Providers/Chief Complaint Admitting Physician: Kerry Jalloh MD Primary Care Provider: SETH Blackburn Chief Complaint: AMS History of Present Illness Fahad Snow is a 80 year old male with PMH DM, HTN, CVA, residual right hemiparesis, presenting to the ER with c/o being unresponsive at home and found to be hypoglycemic at home with blood sugar 37 upon EMS arrival. He has since re ceived 50% dextrose and 10% IVF with improvement in blood sugar to 90s now. Patient states he missed his meal. He has been experiencing progressive dysphagia over the past 2-3 months and reports episodes of coughing with attempting to eat. Also c/o odynophagia. Unable to tell if worse with solids or liquids. CT scan from 05/2020 showed pt had lower esophageal thickening - esophagitis vs neoplasm, followed up with surgery in jun 2020 but then eventually declined colonoscopy since he felt symptomatically imrpoved. Today he is noted to have a slightly distended tense abdomen, though he denies any c/o abdominal pain. Last BM 2 days ago, states he has difficulty passing flatus. Able to urinate without difficulty. No vomiting. No diarrhea. Denies recent alteration in bowel habits. On ER arrival additionally noted to have new 02 requirement of 3.5-5lpm. He is previosuly not on oxygen. Denies any h/o COPD or asthma. CXR without consolidation. ROS+ for subjective chills, has not checked his temperature. Denies any URI symptoms. Review of Systems General: Reports: 10 or more systems reviewed and unremarkable except in HPI and below Const: Denies: fever(s), chills or body aches Eyes: Denies: change in vision, blurry vision or photophobia ENMT: Reports: hoarseness; Denies: throat pain, enlarged tonsils, odynophagia or nasal congestion Card: Denies: chest pain, palpitations, irregular heart rhythm, edema, swelling of feet/ankles, lightheadedness, pre-syncope, dyspnea on exertion or orthopnea Resp: Denies: dyspnea, productive cough, non-productive cough, wheezing, stridor, pain on inspiration, change in phlegm color, hemoptysis or chest congestion GI: Denies: abdominal pain, nausea, vomiting, hematemesis, coffee ground e mesis, dysphagia, heartburn, diarrhea, constipation, GI cramping, change in stool character, hematochezia or melena : Denies: flank pain, dysuria, urinary frequency, urinary urgency, urinary hesitancy or hematuria Musc: Denies: neck pain, back pain, extremity pain, joint swelling, joint warmth or deformity Neuro: Denies: headache(s), numbness in extremities, weakness in extremities, sensory changes, difficulty walking, frequent falls, dizziness, vertigo, behavioral changes, Slurred speech present or seizure-like activity Psych: Denies: anxiety, depression, suicidal ideation or homicidal ideation Endo: Denies: polyuria, polydipsia, tired all the time, cold intolerance or hot flashes Mark/Lymph: Denies: easy bruising or easy bleeding Medications/Allergies Home Medications Medication Instructions Recorded Confirmed Last Taken Type bimatoprost [Lumigan] See Rx Instructions .ROUTE .COMPLEX 05/21/20 06/19/21 05/20/20 History folic acid 1 mg PO DAILY@1000 05/21/20 06/19/21 06/18/21 History glipizide 10 mg PO DAILY@1000 05/21/20 06/19/21 06/18/21 History hydrochlorothiazide 12.5 mg PO DAILY@1000 05/21/20 06/19/21 06/18/21 History insulin glargine [Lantus Solostar 34 unit SUBCUT DAILY@2200 05/21/20 06/19/21 05/20/20 History U-100 Insulin] labetalol 200 mg PO BID@1000,1800 05/21/20 06/19/21 06/18/21 History lisinopril 20 mg PO DAILY@1000 05/21/20 06/19/21 06/18/21 History mirtazapine 45 mg PO DAILY@1000 05/21/20 06/19/21 06/18/21 History pantoprazole [Protonix] 40 mg PO DAILY #60 tab 05/21/20 06/19/21 06/18/21 Rx pramipexole 0.125 mg PO TID@10,14,18 05/21/20 06/19/21 06/18/21 History Allergies Allergy/AdvReac Type Severity Reaction Status Date / Time mushroom Allergy Unknown Verified 06/14/20 10:40 novacaine Allergy Unknown Uncoded 12/15/20 13:44 PFSH Acute PFSH: Medical History CVA (cerebral vascular accident) Diabetes GERD (gastroesophageal reflux disease) 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 Surgical History H/O colonoscopy 30 yrs ago History of tonsillectomy Hx of cholecystectomy Family History Other Cancer Denies family history of Anesthesia complication Bleeding disorder Social History Smoking and tobacco status: former smoker Alcohol intake: former Household members: spouse Marital status: Current occupational status: retired History of recent travel: No Vitals/I&O/Wt Last Vital Signs Temp 99.0 F 06/19/21 07:33 Pulse 94 06/19/21 07:33 Resp 20 H 06/19/21 07:33 BP 155/64 06/19/21 07:33 Pulse Ox 94 06/19/21 07:33 Weight last 48 hrs Weight 81.647 kg Weight 74.843 kg Physical Exam Narrative: EXAM NARRATIVE: General: experiencing chills currently, in [facility], AO x3, mild blue purple swelling over left upper eyelid which patient st ates was susatined after a fall few days ago at home HEENT: PERRLA, pupils bilaterally equal and reactive, pallors not present Chest: Coarse crackles B/L CVS: S1-S2 regular, no murmurs, no tachycardia, no gallops, no rubs Abdomen: Soft, distended, winces on palpation however continues to deny pain, BS appear sluggish. Neuro: Reisdual R hemiparesis from old CVA, no facial deformity, AO x3 Extremities: no swelling, edema or cyanosis Data : 06/19/21 02:50 06/19/21 02:50 Micro: Microbiology 06/19/21 03:10 Blood Culture - Preliminary Blood SPECIMEN COLLECTED 06/19/21 03:45 Blood Culture - Preliminary Blood SPECIMEN COLLECTED A&P Assessment and plan (1) Hypoglycemic episode in patient with diabetes mellitus: Status: Acute (2) Aspiration pneumonitis: Status: Acute (3) Hypoxemia: Status: Acute (4) Dysphagia: Status: Acute (5) ANU (acute kidney injury): Status: Acute Additional A&P Information 80M presenting with hypoglycemia which is now improved after dextrose infusion, but also noted to have new hypoxemia and 02 requirement, progressive dysphagia , abdominal distension and ANU. Admit to med/surg Clinically appears to be dehydrated, reports poor po intake over several days IVF d5NS @ 75 cc/hr New hypoxemia may be related to aspiration- patient reports coughing spells with attempts to eat- start Zosyn empirically while undergoing further w/up Check D dimer to screen for PE, LE duplex, unable to get CTA due to ANU CT abdomen from 05/2020 with esophageal thickening- esophagistis vs neoplasm- given now with progressive dysphagia, will obtain CT CAP to assess for progression of neoplastic process. declined UGIE in 06/[address]. [address] abdomen to assess for SBO given noted distension, constipation Check UA, COVID PCR ANU likely 2/2 dehydration, previous baseline 1.9. Hold lisinopril. IVF as above NPO until swallow eval Attestations Medical Necessity Statement*: Anticipate >2midnight admission for evlauation and management of hypoglycemia, progressive dysphagia, evaluate for neoplasm and SBO, iv abx for aspiration Coding Level of Care Code Acute Business Practices Supervisor for Chg Fwd Diagnoses Hypoglycemic episode in patient with diabetes mellitus E11.649 Aspiration pneumonitis J69.0 Hypoxemia R09.02 Dysphagia R13.10 ANU (acute kidney injury) N17.9
[2021-06-19] MEDS: labetalol 200 mg Tablet PO ×2 (08:11→17:03)
[2021-06-19] MEDS: famotidine 20 mg/2 mL INJ IVP (08:11)
[2021-06-19] MEDS: dextrose 5%-sod chloride 0.9% 1,000 ML 75 ML IV ×2 (08:11→23:53)
[2021-06-19] MEDS: enoxaparin 40 mg/0.4 mL Syringe SUBCUT (08:11)
[2021-06-19] MEDS: piperacillin-tazobactam 3.375 GM in sodium chloride 0.9% (plus) 50 ML IV ×3 (08:14→23:53)
[2021-06-19] MEDS: mirtazapine 15 mg Tablet 45 MG PO (08:14)
[2021-06-19 08:39] LABS: NT Pro B Type Natriuretic Pept 136 pg/mL (0-450)
--- NOTE | 2021-06-19 08:56 | ECG_ITS ---
[facility] Test Date: 2021-06-19 Pat Name: Fahad Snow Department: Room: 253 Gender: Male Child Care Counselor: : 1940 Requested By: Adalid Segura Order Number: [id number] Reading MD: BRODY FRAGA Measurements Intervals [place] Rate: 90 P: 59 MT: 197 QRS: 21 QRSD: 90 T: 72 QT: 346 QTc: 424 Interpretive Statements SINUS RHYTHM NONSPECIFIC ST & T-WAVE ABNORMALITY Compared to ECG 06/19/2021 04:51:54 Sinus arrhythmia no longer present T-wave abnormality still present Electronically Signed On 06-20-2021 18:21:35 CASKET TRIMMER by BRODY FRAGA [email or web address] [email or web address]/store/OM/[id number]
[2021-06-19 09:56] LABS: Troponin 5 6HR 46.06 ng/L (0-15)
[2021-06-19 10:06] LABS: Add Urine Culture? No; Add Urine Microscopic? YES; Bacteria Urine TRACE /hpf; Bilirubin Urine Neg (Negative); Blood Urine 2+ (Negative); Glucose Urine UA 2+ (Normal); Ketones Urine Negative (Negative); Leukocyte Esterase Urine Negative (Negative); Nitrate Urine Negative (Negative); Protein Urine Neg (Negative); RBC Urine 0-4 /hpf (0-2); Squamous Epithelial Cell Urine 0-4 /hpf (0-5); Urine Appearance Clear (CLEAR); Urine Color Yellow (Yellow); Urobilinogen Urine Norm (Negative); pH Urine 5 (5-7)
[2021-06-19 10:08] LABS: Glucose Point of Care 196 mg/dL (70-110)
--- NOTE | 2021-06-19 10:12 | PC.CHAP ---
Pastoral Care Encounter/Spiritual Assessment Type of Contact [] Declined seasonal clerk visit [] Patient/Family/Request visit [] Outpatient visit [] Follow-up visit [] Physician referral [] Code/Alert [] Routine visit [] Staff referral [] Actively dying [] Patient sleeping [] Family support [] [] Out of room [] Palliative care [] [] Receiving care in room [] Pre-surgical visit [] Trauma [] Long length of stay [] ICU visit [x] Other: with staff Relational/Emotional Strength [] Patient feels connected with others/family/visitors/staff [] Distress [] Loneliness/isolation [] Abandonment Spirituality of Patient [] Person of Meli [] Attends Alevism of their Meli [] Believes in Prayer [] Reads Bible or Christianity materials [] There are Spiritual issues to be addressed Volcanology Teacher Interventions [] Prayer [] Active listening [] Non-anxious presence [] Spiritual/emotional support [] Crisis/trauma care [] Spiritual counseling [] Bereavement support [] Provided bereavement packet [] Provided Bible/devotional materials [] Provided toy/stuffed animal, coloring book to patient or family member [] Provided Communion [] Anointing/[place] [] Salvation [] Completed spiritual assessment [] Other: Impact on Illness or Injury [] Angry [] Fearful [] Anxious [] Often cries [] Exhaustion [] Unable to work [] Unable to attend latter-day [] Unable to walk/stand [] Unable to read [] Unable to drive [] Unable to eat/drink [] Unable to sleep [] Unable to be with family [] Patient intubated [] Other: Summary with staff Time spent with patient 5 mins
[2021-06-19 11:07] LABS: Glucose Point of Care 238 mg/dL (70-110)
--- NOTE | 2021-06-19 11:51 | P.ANESASSM_ITS ---
Documented by User: Valeria Green CRNA 06/19/21 11:54 Pre-Anesthetic Assessment Pre-Anesthetic Assessment: Height/Weight: Height 1.8 m Weight 81.647 kg Temp Pulse Resp BP Pulse Ox 99.0 F 94 20 H 155/64 97 06/19/21 07:33 06/19/21 07:33 06/19/21 07:33 06/19/21 07:33 06/19/21 10:25 Preop Diagnosis: GOO Proposed Procedure: Operation Date: 06/19/21 11:45 Proposed Procedures p EGD(Not Applicable) - Steve Avalos MD Was Beta Rocky taken within 24 hours: N/A Was Clonidine taken within 24 hours: N/A Last Intake: 00:00 Social: Social History: No alcohol and No tobacco Exam: Pre-Anes Outpt Exam: alert and oriented x 3 Airway: Submandibular: WNL Cervical ROM: WNL MP: 2 Dentition: False History/ROS: No significant history except as noted Pulmonary: Pulmonary: LÓPEZ and SOB CV/HEM: CV/HEM: HTN Metabolic: Metabolic: DM Neuropsych: Neuropsych: CVA (1985- right side hemiparesis) Anesthetic Plan: ASA status: 3E Anesthesia: Anesthesia Evaluation and MAC Risk of > 500 ml blood loss (7ml/kg in children): No Medications/Allergies Current Medications: Current Medications Generic Name Dose Route Start Last Admin Trade Name Freq PRN Reason Stop Dose Admin Enoxaparin Sodium 40 mg 06/19/21 07:45 06/19/21 08:11 Enoxaparin 40 Mg /0.4 Ml Syringe SUBCUT 40 mg Q24H KEAGAN Administration Dextrose/Sodium Ch loride 1,000 mls @ 75 ml s/hr 06/19/21 08:00 06/19/21 08:11 Dextrose 5%-Sod Chloride 0.9% IV 75 mls/hr .[id number] KEAGAN Administration Piperacillin Sod/T azobactam 50 mls @ 12.5 mls /hr 06/19/21 08:00 06/19/21 08:14 Sod 3.375 gm/ So dium Chloride IV 12.5 mls/hr Q8H KEAGAN Administration Labetalol HCl 200 mg 06/19/21 10:00 06/19/21 08:11 Labetalol 200 Mg Tablet PO 200 mg BID@1000,1800 KEAGAN Administration Mirtazapine 45 mg 06/19/21 10:00 06/19/21 08:14 Mirtazapine 15 M g Tablet PO 45 mg DAILY@1000 KEAGAN Administration PFSH Anesthesia PFSH: Medical History CVA (cerebral vascular accident) Diabetes GERD (gastroesophageal reflux disease) 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8 Plt Count 185 MPV 11.0 H Neut % (Auto) 66.4 Lymph % (Auto) 25.2 [place] % (Auto) 5.9 Eos % (Auto) 1.6 Baso % (Auto) 0.6 Neut # (Auto) 4.18 Lymph # (Auto) 1.6 [place] # (Auto) 0.4 Eos # (Auto) 0.1 Baso # (Auto) 0.0 Nucleated RBC % (auto) 0 Nucleated RBCs # 0.0 D-Dimer Specimen Type Sample Site ABG pH ABG pCO2 ABG pO2 ABG HCO3 ABG Base Excess Tj Test Hematocrit O2 Delivery Device O2 Liters/Min Machine Stoppage Frequency Checker ID Sodium 137 Potassium 4.4 Chloride 102 Carbon Dioxide 16 L Anion Gap 23.4 H BUN 33 H Creatinine 2.4 H GFR Calculation Not Reportable Glucose 340 H POC Glucose Calculated Osmolality 305 H Lactic Acid Calcium 7.9 L Total Bilirubin 0.3 AST 16 ALT 16 Alkaline Phosphatase 103 Troponin T Baseline 56 H Troponin T 120 Minute Delta Troponin T Troponin T Hi Sens 6Hr Troponin T Hi Sens 6Hr Delta C-Reactive Protein 15.3 H NT-Pro-B Natriuret Pep 181 Total Protein 6.5 L Albumin 4.0 Globulin 2.5 Procalcitonin 0.12 TSH 1.95 Urine Color Urine Appearance Urine pH Ur Specific [place] Urine Protein Urine Glucose (UA) Urine Ketones Urine Blood Urine Nitrate Urine Bilirubin Urine Urobilinogen Ur Leukocyte Esterase Urine RBC Urine WBC Ur Squamous Epith Cells Amorphous Sediment Urine Bacteria Coronavirus 229E (PCR) SARS-CoV-2 (PCR) 06/19/21 06/19/21 06/19/21 02:53 02:55 04:34 WBC RBC Hgb Hct MCV MCH MCHC RDW Plt Count MPV Neut % (Auto) Lymph % (Auto) [place] % (Auto) Eos % (Auto) Baso % (Auto) Neut # (Auto) Lymph # (Auto) [place] # (Auto) Eos # (Auto) Baso # (Auto) Nucleated RBC % (auto) Nucleated RBCs # D-Dimer Specimen Type Arterial Sample Site Brachial, left ABG pH 7.35 ABG pCO2 37.2 ABG pO2 70.2 L ABG HCO3 20.7 L ABG Base Excess -4.3 L Tj Test N/a Hematocrit 37.1 L O2 Delivery Device Nc O2 Liters/Min 5.0 Machine Stoppage Frequency Checker ID [id number] Sodium Potassium Chloride Carbon Dioxide Anion Gap BUN Creatinine GFR Calculation Glucose POC Glucose 97 77 Calculated Osmolality Lactic Acid Calcium Total Bilirubin AST ALT Alkaline Phosphatase Troponin T Baseline Troponin T 120 Minute Delta Troponin T Troponin T Hi Sens 6Hr Troponin T Hi Sens 6Hr Delta C-Reactive Protein NT-Pro-B Natriuret Pep Total Protein Albumin Globulin Procalcitonin TSH Urine Color Urine Appearance Urine pH Ur Specific [place] Urine Protein Urine Glucose (UA) Urine Ketones Urine Blood Urine Nitrate Urine Bilirubin Urine Urobilinogen Ur Leukocyte Esterase Urine RBC Urine WBC Ur Squamous Epith Cells Amorphous Sediment Urine Bacteria Coronavirus 229E (PCR) SARS-CoV-2 (PCR) 06/19/21 06/19/21 06/19/21 04:37 04:37 04:37 WBC RBC Hgb Hct MCV MCH MCHC RDW Plt Count MPV Neut % (Auto) Lymph % (Auto) [place] % (Auto) Eos % (Auto) Baso % (Auto) Neut # (Auto) Lymph # (Auto) [place] # (Auto) Eos # (Auto) Baso # (Auto) Nucleated RBC % (auto) Nucleated RBCs # D-Dimer Specimen Type Sample Site ABG pH ABG pCO2 ABG pO2 ABG HCO3 ABG Base Excess Tj Test Hematocrit O2 Delivery Device O2 Liters/Min Machine Stoppage Frequency Checker ID Sodium Potassium Chloride Carbon Dioxide Anion Gap BUN Creatinine GFR Calculation Glucose POC Glucose Calculated Osmolality Lactic Acid 0.9 Calcium Total Bilirubin AST ALT Alkaline Phosphatase Troponin T Baseline Troponin T 120 Minute 45.92 H Delta Troponin T -10.08 L Troponin T Hi Sens 6Hr Troponin T Hi Sens 6Hr Delta C-Reactive Protein NT-Pro-B Natriuret Pep 136 Total Protein Albumin Globulin Procalcitonin TSH Urine Color Urine Appearance Urine pH Ur Specific [place] Urine Protein Urine Glucose (UA) Urine Ketones Urine Blood Urine Nitrate Urine Bilirubin Urine Urobilinogen Ur Leukocyte Esterase Urine RBC Urine WBC Ur Squamous Epith Cells Amorphous Sediment Urine Bacteria Coronavirus 229E (PCR) SARS-CoV-2 (PCR) 06/19/21 06/19/21 06/19/21 05:06 05:13 08:20 WBC RBC Hgb Hct MCV MCH MCHC RDW Plt Count MPV Neut % (Auto) Lymph % (Auto) [place] % (Auto) Eos % (Auto) Baso % (Auto) Neut # (Auto) Lymph # (Auto) [place] # (Auto) Eos # (Auto) Baso # (Auto) Nucleated RBC % (auto) Nucleated RBCs # D-Dimer Specimen Type Sample Site ABG pH ABG pCO2 ABG pO2 ABG HCO3 ABG Base Excess Tj Test Hematocrit O2 Delivery Device O2 Liters/Min Machine Stoppage Frequency Checker ID Sodium Potassium Chloride Carbon Dioxide Anion Gap BUN Creatinine GFR Calculation Glucose POC Glucose 98 Calculated Osmolality Lactic Acid Calcium Total Bilirubin AST ALT Alkaline Phosphatase Troponin T Baseline Troponin T 120 Minute Delta Troponin T Troponin T Hi Sens 6Hr Troponin T Hi Sens 6Hr Delta C-Reactive Protein NT-Pro-B Natriuret Pep Total Protein Albumin Globulin Procalcitonin TSH Urine Color Yellow Urine Appearance Clear Urine pH 5 Ur Specific [place] 1.020 Urine Protein Neg Urine Glucose (UA) 2+ H Urine Ketones Negative Urine Blood 2+ H Urine Nitrate Negative Urine Bilirubin Neg Urine Urobilinogen Norm Ur Leukocyte Esterase Negative Urine RBC 0-4 H Urine WBC None Ur Squamous Epith Cells 0-4 H Amorphous Sediment Not Reportable Urine Bacteria Trace Coronavirus 229E (PCR) Not detected SARS-CoV-2 (PCR) Not detected 06/19/21 06/19/21 06/19/21 09:01 09:09 09:53 WBC RBC Hgb Hct MCV MCH MCHC RDW Plt Count MPV Neut % (Auto) Lymph % (Auto) [place] % (Auto) Eos % (Auto) Baso % (Auto) Neut # (Auto) Lymph # (Auto) [place] # (Auto) Eos # (Auto) Baso # (Auto) Nucleated RBC % (auto) Nucleated RBCs # D-Dimer 3.10 H Specimen Type Sample Site ABG pH ABG pCO2 ABG pO2 ABG HCO3 ABG Base Excess Tj Test Hematocrit O2 Delivery Device O2 Liters/Min Machine Stoppage Frequency Checker ID Sodium Potassium Chloride Carbon Dioxide Anion Gap BUN Creatinine GFR Calculation Glucose POC Glucose 196 H Calculated Osmolality Lactic Acid Calcium Total Bilirubin AST ALT Alkaline Phosphatase Troponin T Baseline Troponin T 120 Minute Delta Troponin T Troponin T Hi Sens 6Hr 46.06 H Troponin T Hi Sens 6Hr Delta -9.94 L C-Reactive Protein NT-Pro-B Natriuret Pep Total Protein Albumin Globulin Procalcitonin TSH Urine Color Urine Appearance Urine pH Ur Specific [place] Urine Protein Urine Glucose (UA) Urine Ketones Urine Blood Urine Nitrate Urine Bilirubin Urine Urobilinogen Ur Leukocyte Esterase Urine RBC Urine WBC Ur Squamous Epith Cells Amorphous Sediment Urine Bacteria Coronavirus 229E (PCR) SARS-CoV-2 (PCR) 06/19/21 10:59 WBC RBC Hgb Hct MCV MCH MCHC RDW Plt Count MPV Neut % (Auto) Lymph % (Auto) [place] % (Auto) Eos % (Auto) Baso % (Auto) Neut # (Auto) Lymph # (Auto) [place] # (Auto) Eos # (Auto) Baso # (Auto) Nucleated RBC % (auto) Nucleated RBCs # D-Dimer Specimen Type Sample Site ABG pH ABG pCO2 ABG pO2 ABG HCO3 ABG Base Excess Tj Test Hematocrit O2 Delivery Device O2 Liters/Min Machine Stoppage Frequency Checker ID Sodium Potassium Chloride Carbon Dioxide Anion Gap BUN Creatinine GFR Calculation Glucose POC Glucose 238 H Calculated Osmolality Lactic Acid Calcium Total Bilirubin AST ALT Alkaline Phosphatase Troponin T Baseline Troponin T 120 Minute Delta Troponin T Troponin T Hi Sens 6Hr Troponin T Hi Sens 6Hr Delta C-Reactive Protein NT-Pro-B Natriuret Pep Total Protein Albumin Globulin Procalcitonin TSH Urine Color Urine Appearance Urine pH Ur Specific [place] Urine Protein Urine Glucose (UA) Urine Ketones Urine Blood Urine Nitrate Urine Bilirubin Urine Urobilinogen Ur Leukocyte Esterase Urine RBC Urine WBC Ur Squamous Epith Cells Amorphous Sediment Urine Bacteria Coronavirus 229E (PCR) SARS-CoV-2 (PCR) Micro: Microbiology 06/19/21 03:10 Blood Culture - Preliminary Blood SPECIMEN COLLECTED 06/19/21 03:45 Blood Culture - Preliminary Blood SPECIMEN COLLECTED Cardiac Studies: No Data to Display Documented by User: Dylon Wilkinson DO 06/19/21 12:00 PFSH Anesthesia PFSH: Medical History CVA (cerebral vascular accident) Diabetes GERD (gastroesophageal reflux disease) 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
--- NOTE | 2021-06-19 11:52 | P.ANESASSM_ITS ---
Pre-Anesthetic Assessment Pre-Anesthetic Assessment: Height/Weight: Height 1.8 m Weight 81.647 kg Temp Pulse Resp BP Pulse Ox 99.0 F 94 20 H 155/64 97 06/19/21 07:33 06/19/21 07:33 06/19/21 07:33 06/19/21 07:33 06/19/21 10:25 Preop Diagnosis: GOO Proposed Procedure: Operation Date: 06/19/21 11:45 Proposed Procedures p EGD(Not Applicable) - Steve Avalos MD Was Beta Rocky taken within 24 hours: N/A Was Clonidine taken within 24 hours: N/A Social: Social History: No alcohol and No tobacco Exam: Pre-Anes Outpt Exam: alert, oriented x 3, clear to auscultation bilaterally and regular rate & rhythm Airway: Submandibular: WNL Cervical ROM: WNL MP: 2 Dentition: False Pulmonary: Pulmonary: SOB Comments: B/L pneumonitis on CT CV/HEM: CV/HEM: HTN Comments: Anemia Elevated troponin : Comments: ANU GI: Comments: Gastric outlet obstruction Metabolic: Metabolic: DM Neuropsych: Neuropsych: CVA Comments: CT Head 06/19/21 Anesthetic Plan: ASA status: 3E Anesthesia: Anesthesia Evaluation and MAC Other: Plan GETA based on CT findings. See additional findings in Risk of > 500 ml blood loss (7ml/kg in children): No Medications/Allergies Current Medications: Current Medications Generic Name Dose Route Start Last Admin Trade Name Freq PRN Reason Stop Dose Admin Enoxaparin Sodium 40 mg 06/19/21 07:45 06/19/21 08:11 Enoxaparin 40 Mg /0.4 Ml Syringe SUBCUT 40 mg Q24H KEAGAN Administration Dextrose/Sodium Ch loride 1,000 mls @ 75 ml s/hr 06/19/21 08:00 06/19/21 08:11 Dextrose 5%-Sod Chloride 0.9% IV 75 mls/hr .[id number] KEAGAN Administration Piperacillin Sod/T azobactam 50 mls @ 12.5 mls /hr 06/19/21 08:00 06/19/21 08:14 Sod 3.375 gm/ So dium Chloride IV 12.5 mls/hr Q8H KEAGAN Administration Labetalol HCl 200 mg 06/19/21 10:00 06/19/21 08:11 Labetalol 200 Mg Tablet PO 200 mg BID@1000,1800 KEAGAN Administration Mirtazapine 45 mg 06/19/21 10:00 06/19/21 08:14 Mirtazapine 15 M g Tablet PO 45 mg DAILY@1000 KEAGAN Administration PFSH Anesthesia PFSH: Medical History CVA (cerebral vascular accident) Diabetes GERD (gastroesophageal reflux disease) 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8 Plt Count 185 MPV 11.0 H Neut % (Auto) 66.4 Lymph % (Auto) 25.2 [place] % (Auto) 5.9 Eos % (Auto) 1.6 Baso % (Auto) 0.6 Neut # (Auto) 4.18 Lymph # (Auto) 1.6 [place] # (Auto) 0.4 Eos # (Auto) 0.1 Baso # (Auto) 0.0 Nucleated RBC % (auto) 0 Nucleated RBCs # 0.0 D-Dimer Specimen Type Sample Site ABG pH ABG pCO2 ABG pO2 ABG HCO3 ABG Base Excess Tj Test Hematocrit O2 Delivery Device O2 Liters/Min Strategic Sourcing Specialist ID Sodium 137 Potassium 4.4 Chloride 102 Carbon Dioxide 16 L Anion Gap 23.4 H BUN 33 H Creatinine 2.4 H GFR Calculation Not Reportable Glucose 340 H POC Glucose Calculated Osmolality 305 H Lactic Acid Calcium 7.9 L Total Bilirubin 0.3 AST 16 ALT 16 Alkaline Phosphatase 103 Troponin T Baseline 56 H Troponin T 120 Minute Delta Troponin T Troponin T Hi Sens 6Hr Troponin T Hi Sens 6Hr Delta C-Reactive Protein 15.3 H NT-Pro-B Natriuret Pep 181 Total Protein 6.5 L Albumin 4.0 Globulin 2.5 Procalcitonin 0.12 TSH 1.95 Urine Color Urine Appearance Urine pH Ur Specific [place] Urine Protein Urine Glucose (UA) Urine Ketones Urine Blood Urine Nitrate Urine Bilirubin Urine Urobilinogen Ur Leukocyte Esterase Urine RBC Urine WBC Ur Squamous Epith Cells Amorphous Sediment Urine Bacteria Coronavirus 229E (PCR) SARS-CoV-2 (PCR) 06/19/21 06/19/21 06/19/21 02:53 02:55 04:34 WBC RBC Hgb Hct MCV MCH MCHC RDW Plt Count MPV Neut % (Auto) Lymph % (Auto) [place] % (Auto) Eos % (Auto) Baso % (Auto) Neut # (Auto) Lymph # (Auto) [place] # (Auto) Eos # (Auto) Baso # (Auto) Nucleated RBC % (auto) Nucleated RBCs # D-Dimer Specimen Type Arterial Sample Site Brachial, left ABG pH 7.35 ABG pCO2 37.2 ABG pO2 70.2 L ABG HCO3 20.7 L ABG Base Excess -4.3 L Tj Test N/a Hematocrit 37.1 L O2 Delivery Device Nc O2 Liters/Min 5.0 Strategic Sourcing Specialist ID [id number] Sodium Potassium Chloride Carbon Dioxide Anion Gap BUN Creatinine GFR Calculation Glucose POC Glucose 97 77 Calculated Osmolality Lactic Acid Calcium Total Bilirubin AST ALT Alkaline Phosphatase Troponin T Baseline Troponin T 120 Minute Delta Troponin T Troponin T Hi Sens 6Hr Troponin T Hi Sens 6Hr Delta C-Reactive Protein NT-Pro-B Natriuret Pep Total Protein Albumin Globulin Procalcitonin TSH Urine Color Urine Appearance Urine pH Ur Specific [place] Urine Protein Urine Glucose (UA) Urine Ketones Urine Blood Urine Nitrate Urine Bilirubin Urine Urobilinogen Ur Leukocyte Esterase Urine RBC Urine WBC Ur Squamous Epith Cells Amorphous Sediment Urine Bacteria Coronavirus 229E (PCR) SARS-CoV-2 (PCR) 06/19/21 06/19/21 06/19/21 04:37 04:37 04:37 WBC RBC Hgb Hct MCV MCH MCHC RDW Plt Count MPV Neut % (Auto) Lymph % (Auto) [place] % (Auto) Eos % (Auto) Baso % (Auto) Neut # (Auto) Lymph # (Auto) [place] # (Auto) Eos # (Auto) Baso # (Auto) Nucleated RBC % (auto) Nucleated RBCs # D-Dimer Specimen Type Sample Site ABG pH ABG pCO2 ABG pO2 ABG HCO3 ABG Base Excess Tj Test Hematocrit O2 Delivery Device O2 Liters/Min Strategic Sourcing Specialist ID Sodium Potassium Chloride Carbon Dioxide Anion Gap BUN Creatinine GFR Calculation Glucose POC Glucose Calculated Osmolality Lactic Acid 0.9 Calcium Total Bilirubin AST ALT Alkaline Phosphatase Troponin T Baseline Troponin T 120 Minute 45.92 H Delta Troponin T -10.08 L Troponin T Hi Sens 6Hr Troponin T Hi Sens 6Hr Delta C-Reactive Protein NT-Pro-B Natriuret Pep 136 Total Protein Albumin Globulin Procalcitonin TSH Urine Color Urine Appearance Urine pH Ur Specific [place] Urine Protein Urine Glucose (UA) Urine Ketones Urine Blood Urine Nitrate Urine Bilirubin Urine Urobilinogen Ur Leukocyte Esterase Urine RBC Urine WBC Ur Squamous Epith Cells Amorphous Sediment Urine Bacteria Coronavirus 229E (PCR) SARS-CoV-2 (PCR) 06/19/21 06/19/21 06/19/21 05:06 05:13 08:20 WBC RBC Hgb Hct MCV MCH MCHC RDW Plt Count MPV Neut % (Auto) Lymph % (Auto) [place] % (Auto) Eos % (Auto) Baso % (Auto) Neut # (Auto) Lymph # (Auto) [place] # (Auto) Eos # (Auto) Baso # (Auto) Nucleated RBC % (auto) Nucleated RBCs # D-Dimer Specimen Type Sample Site ABG pH ABG pCO2 ABG pO2 ABG HCO3 ABG Base Excess Tj Test Hematocrit O2 Delivery Device O2 Liters/Min Strategic Sourcing Specialist ID Sodium Potassium Chloride Carbon Dioxide Anion Gap BUN Creatinine GFR Calculation Glucose POC Glucose 98 Calculated Osmolality Lactic Acid Calcium Total Bilirubin AST ALT Alkaline Phosphatase Troponin T Baseline Troponin T 120 Minute Delta Troponin T Troponin T Hi Sens 6Hr Troponin T Hi Sens 6Hr Delta C-Reactive Protein NT-Pro-B Natriuret Pep Total Protein Albumin Globulin Procalcitonin TSH Urine Color Yellow Urine Appearance Clear Urine pH 5 Ur Specific [place] 1.020 Urine Protein Neg Urine Glucose (UA) 2+ H Urine Ketones Negative Urine Blood 2+ H Urine Nitrate Negative Urine Bilirubin Neg Urine Urobilinogen Norm Ur Leukocyte Esterase Negative Urine RBC 0-4 H Urine WBC None Ur Squamous Epith Cells 0-4 H Amorphous Sediment Not Reportable Urine Bacteria Trace Coronavirus 229E (PCR) Not detected SARS-CoV-2 (PCR) Not detected 06/19/21 06/19/21 06/19/21 09:01 09:09 09:53 WBC RBC Hgb Hct MCV MCH MCHC RDW Plt Count MPV Neut % (Auto) Lymph % (Auto) [place] % (Auto) Eos % (Auto) Baso % (Auto) Neut # (Auto) Lymph # (Auto) [place] # (Auto) Eos # (Auto) Baso # (Auto) Nucleated RBC % (auto) Nucleated RBCs # D-Dimer 3.10 H Specimen Type Sample Site ABG pH ABG pCO2 ABG pO2 ABG HCO3 ABG Base Excess Tj Test Hematocrit O2 Delivery Device O2 Liters/Min Strategic Sourcing Specialist ID Sodium Potassium Chloride Carbon Dioxide Anion Gap BUN Creatinine GFR Calculation Glucose POC Glucose 196 H Calculated Osmolality Lactic Acid Calcium Total Bilirubin AST ALT Alkaline Phosphatase Troponin T Baseline Troponin T 120 Minute Delta Troponin T Troponin T Hi Sens 6Hr 46.06 H Troponin T Hi Sens 6Hr Delta -9.94 L C-Reactive Protein NT-Pro-B Natriuret Pep Total Protein Albumin Globulin Procalcitonin TSH Urine Color Urine Appearance Urine pH Ur Specific [place] Urine Protein Urine Glucose (UA) Urine Ketones Urine Blood Urine Nitrate Urine Bilirubin Urine Urobilinogen Ur Leukocyte Esterase Urine RBC Urine WBC Ur Squamous Epith Cells Amorphous Sediment Urine Bacteria Coronavirus 229E (PCR) SARS-CoV-2 (PCR) 06/19/21 10:59 WBC RBC Hgb Hct MCV MCH MCHC RDW Plt Count MPV Neut % (Auto) Lymph % (Auto) [place] % (Auto) Eos % (Auto) Baso % (Auto) Neut # (Auto) Lymph # (Auto) [place] # (Auto) Eos # (Auto) Baso # (Auto) Nucleated RBC % (auto) Nucleated RBCs # D-Dimer Specimen Type Sample Site ABG pH ABG pCO2 ABG pO2 ABG HCO3 ABG Base Excess Tj Test Hematocrit O2 Delivery Device O2 Liters/Min Strategic Sourcing Specialist ID Sodium Potassium Chloride Carbon Dioxide Anion Gap BUN Creatinine GFR Calculation Glucose POC Glucose 238 H Calculated Osmolality Lactic Acid Calcium Total Bilirubin AST ALT Alkaline Phosphatase Troponin T Baseline Troponin T 120 Minute Delta Troponin T Troponin T Hi Sens 6Hr Troponin T Hi Sens 6Hr Delta C-Reactive Protein NT-Pro-B Natriuret Pep Total Protein Albumin Globulin Procalcitonin TSH Urine Color Urine Appearance Urine pH Ur Specific [place] Urine Protein Urine Glucose (UA) Urine Ketones Urine Blood Urine Nitrate Urine Bilirubin Urine Urobilinogen Ur Leukocyte Esterase Urine RBC Urine WBC Ur Squamous Epith Cells Amorphous Sediment Urine Bacteria Coronavirus 229E (PCR) SARS-CoV-2 (PCR) Micro: Microbiology 06/19/21 03:10 Blood Culture - Preliminary Blood SPECIMEN COLLECTED 06/19/21 03:45 Blood Culture - Preliminary Blood SPECIMEN COLLECTED Cardiac Studies: No Data to Display
[2021-06-19] MEDS: sodium chloride 0.9% 1,000 ML 30 ML IV (12:17)
--- NOTE | 2021-06-19 12:18 | PM.CONSULT ---
Providers/Reason For Consult Consulting Physician/Specialty*: General Surgery Dr. Avalos Reason for Consult*: Gastric gastric outlet obstruction Attending Physician: Pete Bae MD Primary Care Provider: SETH Blackburn History of Present Illness History of Present Illness Fahad Snow is a 80 year old male whom I had previously seen in the clinic about a year ago with complaints of abdominal pain nausea and loss of appetite following a visit to our emergency room.. CT scan at that point had shown esophagitis and duodenitis and when I had seen the patient in the clinic he was completely asymptomatic. At that point we had plan for continued observation and PPI therapy. Patient was brought to the ER last night after he became unresponsive, his home blood sugar was noted to be 37. He received dextrose. Patient has been having worsening dysphagia and odynophagia for the last 2 to 3 months. He was also noted to be distended and was complaining of some abdominal pain which was generalized and therefore a CT abdomen pelvis was obtained which showed possible gastric outlet obstruction Review of Systems General: Reports: 10 or more systems reviewed and unremarkable except in HPI and below Medications/Allergies Home Medications Medication Instructions Recorded Confirmed Last Taken Type bimatoprost [Lumigan] See Rx Instructions .ROUTE .COMPLEX 05/21/20 06/19/21 05/20/20 History folic acid 1 mg PO DAILY@1000 05/21/20 06/19/21 06/18/21 History glipizide 10 mg PO DAILY@1000 05/21/20 06/19/21 06/18/21 History hydrochlorothiazide 12.5 mg PO DAILY@1000 05/21/20 06/19/21 06/18/21 History insulin glargine [Lantus Solostar 34 unit SUBCUT DAILY@2200 05/21/20 06/19/21 05/20/20 History U-100 Insulin] labetalol 200 mg PO BID@1000,1800 05/21/20 06/19/21 06/18/21 History lisinopril 20 mg PO DAILY@1000 05/21/20 06/19/21 06/18/21 History mirtazapine 45 mg PO DAILY@1000 05/21/20 06/19/21 06/18/21 History pantoprazole [Protonix] 40 mg PO DAILY #60 tab 05/21/20 06/19/21 06/18/21 Rx pramipexole 0.125 mg PO TID@10,14,18 05/21/20 06/19/21 06/18/21 History Allergies Allergy/AdvReac Type Severity Reaction Status Date / Time mushroom Allergy Unknown Verified 06/14/20 10:40 novacaine Allergy Unknown Uncoded 05/21/20 13:44 Current Medications Generic Name Dose Route Start Last Admin Trade Name Freq PRN Reason Stop Dose Admin Enoxaparin Sodium 40 mg 06/19/21 07:45 06/19/21 08:11 Enoxaparin 40 Mg/0.4 Ml Syringe SUBCUT 40 mg Q24H KEAGAN Administration Dextrose/Sodium Chloride 1,000 mls @ 75 mls/hr 06/19/21 08:00 06/19/21 08:11 Dextrose 5%-Sod Chloride 0.9% IV 75 mls/hr .[id number] KEAGAN Administration Piperacillin Sod/Tazobactam 50 mls @ 12.5 mls/hr 06/19/21 08:00 06/19/21 08:14 Sod 3.375 gm/ Sodium Chloride IV 12.5 mls/hr Q8H KEAGAN Administration Sodium Chloride 1,000 mls @ 30 mls/hr 06/19/21 12:15 06/19/21 12:17 Sodium Chloride 0.9% IV 06/20/21 12:14 30 mls/hr .Q24H KEAGAN Administration Labetalol HCl 200 mg 06/19/21 10:00 06/19/21 08:11 Labetalol 200 Mg Tablet PO 200 mg BID@1000,1800 KEAGAN Administration Mirtazapine 45 mg 06/19/21 10:00 06/19/21 08:14 Mirtazapine 15 Mg Tablet PO 45 mg DAILY@1000 KEAGAN Administration PFSH Acute PFSH: Medical History CVA (cerebral vascular accident) Diabetes GERD (gastroesophageal reflux disease) 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 Surgical History (Updated 06/19/21 @ 12:24 by Steve Avalos MD) H/O colonoscopy 30 yrs ago H/O esophagogastroduodenoscopy History of tonsillectomy Hx of cholecystectomy Family History Other Cancer Denies family history of Anesthesia complication Bleeding disorder Social History Smoking and tobacco status: former smoker Alcohol intake: former Household members: spouse Marital status: Current occupational status: retired History of recent travel: No Vitals/I&O/Wt Last Vital Signs Temp 99.0 F 06/19/21 07:33 Pulse 94 06/19/21 07:33 Resp 20 H 06/19/21 07:33 BP 155/64 06/19/21 07:33 Pulse Ox 97 06/19/21 10:25 06/18/21 06/19/21 06/19/21 22:59 06:59 14:59 Intake Total 1000 / 1000 Balance 1000 / 1000 Weight last 48 hrs Weight 180 lb Weight 165 lb Physical Exam Narrative: EXAM NARRATIVE: HEENT: Normocephalic Eye: Sclera /conjunctiva normal Respiratory and chest: Bilateral clear breath sounds on auscultation Cardiovascular: Normal S1 and S2 heart sounds Abdomen: Soft to palpation, minimally tender in the epigastric region Neurological: Oriented to place person and time Skin: Intact, no lesions appreciated on gross exam Data Micro: Micro: Microbiology 06/19/21 03:10 Blood Culture - Pr eliminary Blood SPECIMEN [facility] 06/19/21 03:45 Blood Culture - Pr eliminary Blood SPECIMEN [facility] A&P Assessment and plan (1) Dysphagia: 80-year-old male with who is currently on Protonix 40 mg daily. He had a CT abdomen pelvis on 06/19/2021 which showed interval development of gastric outlet obstruction likely secondary to duodenal inflammation, no obvious pancreatic abnormality noted. Plan for EGD under MAC Procedure, risks, benefits and alternatives have been discussed with the patient who wishes to proceed with surgery. Status: Acute Consult Attestations Medical Necessity Statement: As per attending physician Coding Level of Care Code Acute Senior Recruiter for g Fwd Diagnoses Dysphagia R13.10
--- NOTE | 2021-06-19 12:45 | P.PN_ITS ---
Subjective Subjective: Interval history: Patient was seen this morning, he has right sided hemiparesis, from old stroke, has word finding difficulties, slurring of his words, he tells me that he is chronic from a stroke alert to person, to place, to the present, not to time, he does follow commands, he tells me that he has a lot of abdominal pain, feels nauseous, feels bloated, does report vomi ting, no trouble swallowing, no globus sensation, Vitals/I&O/Wt Last Vital Signs Temp 99.0 F 06/19/21 07:33 Pulse 94 06/19/21 07:33 Resp 20 H 06/19/21 07:33 BP 155/64 06/19/21 07:33 Pulse Ox 97 06/19/21 10:25 06/18/21 06/19/21 06/19/21 22:59 06:59 14:59 Intake Total 1000 / 1000 Balance 1000 / 1000 Weight last 48 hrs Weight 81.647 kg Weight 74.843 kg Physical Exam Narrative: EXAM NARRATIVE: Right-sided hemiparesis, word finding difficulties, slurring words Const: COMMON NORMALS: no acute distress ORIENTATION/CONSCIOUSNESS: Yes awake, Yes oriented to person and Yes oriented to place; not oriented to time HENMT: COMMON NORMALS: normocephalic HEAD & SCALP: normocephalic Resp: COMMON NORMALS: normal respiratory effort, No retractions, No use of accessory muscles and clear to auscultation bilaterally AUSCULTATION: clear to auscultation bilaterally Cardio: COMMON NORMALS: regular rate, regular rhythm, S1 normal heart sound present and S2 normal heart sound present RATE: regular rate RHYTHM: regular rhythm HEART SOUNDS: S1 normal heart sound present and S2 normal heart sound present GI: COMMON NORMALS: Normal to inspection, nondistended, normoactive bowel sounds present, Soft to palpation and non-tender PALPATION: Yes Soft to palpation Extremity: COMMON NORMALS: no pedal edema Neuro: SENSORIUM/ORIENTATION: Yes oriented to person, Yes oriented to place and No oriented to time Data : 06/19/21 02:50 06/19/21 02:50 Micro: Microbiology 06/19/21 03:10 Blood Culture - Preliminary Blood SPECIMEN COLLECTED 06/19/21 03:45 Blood Culture - Preliminary Blood SPECIMEN COLLECTED A&P Assessment and plan (1) Hypoglycemic episode in patient with diabetes mellitus: Status: Acute (2) Aspiration pneumonitis: Status: Acute (3) Hypoxemia: Status: Acute (4) Dysphagia: Status: Acute (5) ANU (acute kidney injury): Status: Acute Additional A&P Information 80M presenting with hypoglycemia which is now improved after dextrose infusion, but also noted to have new hypoxemia and 02 requirement, progressive dysphagia , abdominal distension and ANU. Aspiration pneumonitis -Likely related to gastric outlet obstruction -Currently requiring 2 L -Monitor respiration, monitor respiratory status -Continue Zosyn -N.p.o. -Full code -Lovenox for DVT prophylaxis Hypoxia -Likely secondary aspiration pneumonitis -Bilateral extremity ultrasound pending -We will consider VQ scan based upon above work-up Acute kidney injury -Likely sec to dehydration, IV fluids, hold lisinopril Gastric outlet obstruction -Has a history of esophageal thickening -No complaints of dysphagia, nausea, vomiting -Consult general surgery for EGD -Protonix 40 IV twice daily -NG tube placement -N.p.o. History of CVA -Right-sided hemiparesis, with word finding difficulty, slurring of words Type 2 diabetes mellitus, insulin-dependent -Low-dose sliding scale NSTEMI -6-hour troponin is 46, baseline 56 -No chest pain complaints -No acute ST-T wave changes on EKG -Continue to monitor -Likely related to hypoxia, aspiration, however cannot rule out underlying cardiac etiology Attestations Medical Necessity Statement*: Patient inpatient, greater than 2 midnights, for gastric outlet obstruction Coding Level of Care Code Acute Executive Creative Director for [facility] Fwd Diagnoses Hypoglycemic episode in patient with diabetes mellitus E11.649 Aspiration pneumonitis J69.0 Hypoxemia R09.02 Dysphagia R13.10 ANU (acute kidney injury) N17.9
--- NOTE | 2021-06-19 13:18 | PC.NURSE ---
Temperature was 101.1. Patient uncovered by nurses. Anesthesia notified of the finding. Temp rechecked and dropped to 99.9 at this time. Anesthesia instructed to treat temp if temp goes over 100.4. Will continue to monitor patient.
[2021-06-19 13:30] LABS: Influenza A Not Detected (NOT DETECT); Influenza A H1 Not Detected (NOT DETECT); Influenza A H1-2009 Not Detected (NOT DETECT); Influenza A H3 Not Detected (NOT DETECT); Influenza B Not Detected (NOT DETECT); Results from Genmark
--- NOTE | 2021-06-19 13:37 | ECG_ITS ---
[facility] Test Date: 2021-06-19 Pat Name: Fahad Snow Department: Room: 253 Gender: Male Information Security Associate: : 1940 Requested By: Pete Bae Order Number: [id number] Reading MD: BRODY FRAGA Measurements Intervals [place] Rate: 79 P: 27 RI: 184 QRS: 3 QRSD: 79 T: 73 QT: 368 QTc: 423 Interpretive Statements SINUS RHYTHM NONSPECIFIC T-WAVE ABNORMALITY Compared to ECG 06/19/2021 09:47:39 No significant changes Electronically Signed On 06-20-2021 18:21:29 BLADDER TIER by BRODY FRAGA [email or web address]
--- NOTE | 2021-06-19 13:38 | XR_ITS ---
WS: [id number] XR KUB portable [id number] REASON FOR EXAM: post procedure FINDINGS: There continues to be significant gaseous distention of the stomach. Multiple gas-filled small bowel loops in the right abdomen with minimal distention. No free air or retroperitoneal air. No other significant abnormality. XR/XR KUB portable [id number] IMPRESSION: Continued distention of the stomach. Nonspecific ascitic small bowel gas patter n. No definite acute abnormality.
--- NOTE | 2021-06-19 13:38 | XR_ITS ---
WS: [id number] XR chest 1V portable [id number] REASON FOR EXAM: post procedure FINDINGS: Compared to the examination of 3:03 AM the same day, minimal reticular and linear opacities in the ri ght lower lung field unchanged. The lung opacities in the left lower lung are more prominent and evid ent than on the previous examination. No pneumothoraces. No free air. Degenerative spondylosis, moderate, in the mid and lower thoracic spine. XR/XR chest 1V portable [id number] IMPRESSION: Left lower lobe infiltrate becoming more evident. No other significant finding.
[2021-06-19 14:09] LABS: ABG PCO2 28.1 mmHg (35-45); ABG PH Result 7.41 (7.35-7.45); Arterial Blood Gas Hematocrit 32.2 % (42-52); Base Excess ABG -5.6 mmol/L (-2.0-2.0); Blood Gas Allen Test Pos; Blood Gas Sample Type Arterial; Carboxyhemoglobin 0.6 %THgb (0.4-20.1); HCO3 ABG 17.9 mmol/L (22-26); HGB O2 Sat 95.8 % (95-100); Ionized Calcium Level - ABG 1.1 mmol/L (1.1-1.4); Methemoglobin 0.8 % (0.4-1.5); Oxygen Saturation ABG 97.2; PO2 ABG 83.1 mmHg (80.0-100.0); Total Hemoglobin 10.5 g/dL (14-18)
[2021-06-19 14:11] LABS: Alveolar-Arterial Oxygen Gradi 10.3 mmHg (5-10); Blood Gas Operator Identificat MONRO; Blood Gas Sample Site Radial, right; Oxygen Device NC
--- NOTE | 2021-06-19 14:31 | ANE.PACU2 ---
Inpatient post-anesthesia follow up: Airway intact: Yes Vital signs: Temperature 99.4 F Pulse Rate 79 Respiratory Rate 20 Blood Pressure 104/53 Pulse Oximetry 98 Oxygen Delivery Me thod Nasal Cannula Oxygen Flow Rate 2 Fraction of Inspir ed Oxygen Hydration adequate: Yes Nausea and vomiting: No Pain level: 1 Mental status: Baseline
[2021-06-19 17:09] LABS: Glucose Point of Care 272 mg/dL (70-110)
[2021-06-19 22:30] LABS: Glucose Point of Care 189 mg/dL (70-110)
[2021-06-19] MEDS: pantoprazole 40 mg SDV IVP (23:52)
[2021-06-20] VITALS (8 sets, daily range): BP systolic 96–170; BP diastolic 54–74; PULSE 67–87; RESP 16–20; TEMP 36.9–37.3; O2SAT 95–98
[2021-06-20 05:36] LABS: Basophils % 0.2 %; Eosinophils # 0.1 10^3/uL (0.0-0.8); Eosinophils % 0.9 %; Hematocrit 29.1 % (42.0-52.0); Hemoglobin 9.2 g/dL (11.7-16.6); Lymphocytes # 2.4 10^3/uL (0.8-4.8); Lymphocytes % 26.4 %; Mean Corpuscular HGB Conc 31.6 g/dL (30.0-36.0); Mean Corpuscular Volume 88.7 fl (80-94); Mean Platelet Volume 11.7 fL (7.4-10.4); Monocytes # 0.3 10^3/uL (0.2-0.9); Monocytes % 3.7 %; Neutrophils # 6.21 10^3/uL (1.8-7.7); Neutrophils % 68.5 %; Nucleated Red Blood Cells % 0 %; Platelet Count 148 10^3/cmm (130-400); Red Blood Count 3.28 10^6/uL (4.1-5.3); White Blood Count 9.1 10^3/uL (4.0-10.0)
[2021-06-20 05:57] LABS: Alanine Aminotransferase 12 U/L (0-41); Albumin Level 3.1 g/dL (3.5-5.2); Alkaline Phosphatase 75 IU/L (40-130); Anion Gap 15.9 (5-19); Aspartate Amino Transferase 12 U/L (0-40); Blood Urea Nitrogen 25 mg/dL (8-23); Carbon Dioxide 18 mmol/L (22-29); Chloride 108 mmol/L (98-107); Globulin 2.2 g/dL (1.3-4.6); Glucose 138 mg/dL (65-115); Osmolality Calculated 293 mOsm/kg (285-295); Potassium 3.9 mmol/L (3.5-5.1); Sodium 138 mmol/L (136-145); Total Bilirubin 0.7 mg/dL (0.15-1.2); Total Protein 5.3 g/dL (6.6-8.7)
[2021-06-20 06:30] LABS: Glucose Point of Care 256 mg/dL (70-110)
[2021-06-20] MEDS: pramipexole 0.25 mg Tablet 0.125 MG PO ×2 (06:43→17:15)
[2021-06-20] MEDS: piperacillin-tazobactam 3.375 GM in sodium chloride 0.9% (plus) 50 ML IV ×2 (08:35→17:14)
[2021-06-20] MEDS: enoxaparin 80 mg/0.8 mL Syringe SUBCUT (08:39)
[2021-06-20] MEDS: pantoprazole 40 mg SDV IVP ×2 (09:23→22:23)
[2021-06-20] MEDS: mirtazapine 15 mg Tablet 45 MG PO (09:23)
[2021-06-20 10:09] LABS: Ferritin 171 ng/mL (30-400); Iron 23 ug/dL (59-158); Percent Saturation 10.4 % (20-50); Total Iron Binding Capacity 221 mcg/dl; Unsaturated Iron Binding 198 ug/dL (112-347)
[2021-06-20 10:24] LABS: Hematocrit 29.3 % (42.0-52.0); Hemoglobin 9.3 g/dL (11.7-16.6)
--- NOTE | 2021-06-20 10:40 | PC.CHAP ---
Pastoral Care Encounter/Spiritual Assessment Type of Contact [xx] Declined budget director visit [] Patient/Family/Request visit [] Outpatient visit [] Follow-up visit [] Physician referral [] Code/Alert [] Routine visit [] Staff referral [] Actively dying [] Patient sleeping [] Family support [] [] Out of room [] Palliative care [] [] Receiving care in room [] Pre-surgical visit [] Trauma [] Long length of stay [] ICU visit [] Other: Relational/Emotional Strength [] Patient feels connected with others/family/visitors/staff [] Distress [] Loneliness/isolation [] Abandonment Spirituality of Patient [] Person of Meli [] Attends Druze of their Meli [] Believes in Prayer [] Reads Bible or Adventism materials [] There are Spiritual issues to be addressed Flight Surveyor Interventions [] Prayer [] Active listening [] Non-anxious presence [] Spiritual/emotional support [] Crisis/trauma care [] Spiritual counseling [] Bereavement support [] Provided bereavement packet [] Provided Bible/devotional materials [] Provided toy/stuffed animal, coloring book to patient or family member [] Provided Communion [] Anointing/[place] [] Salvation [] Completed spiritual assessment [] Other: Impact on Illness or Injury [] Angry [] Fearful [] Anxious [] Often cries [] Exhaustion [] Unable to work [] Unable to attend sikhism [] Unable to walk/stand [] Unable to read [] Unable to drive [] Unable to eat/drink [] Unable to sleep [] Unable to be with family [] Patient intubated [] Other: Summary Time spent with patient 1 minute
[2021-06-20 10:54] LABS: Glucose Point of Care 139 mg/dL (70-110)
--- NOTE | 2021-06-20 12:52 | PM.PN ---
Subjective Subjective: Interval history: Denies any abdominal pain, nausea or vomiting, tolerating clear liquid diet Vitals/I&O/Wt Last Vital Signs Temp 98.5 F 06/20/21 11:14 Pulse 80 06/20/21 11:14 Resp 18 06/20/21 11:14 BP 170/74 06/20/21 11:14 Pulse Ox 95 06/20/21 11:14 06/19/21 06/20/21 06/20/21 22:59 06:59 14:59 Intake Total 2020 / 4260 640 / 4260 170 / 170 Output Total 200 / 1360 510 / 1360 Balance 1820 / 2900 130 / 2900 170 / 170 Weight last 48 hrs Weight 180 lb Weight 165 lb Physical Exam Narrative: EXAM NARRATIVE: Abdomen: Soft, nontender, nondistended Data : 06/20/21 09:56 06/20/21 04:23 Micro: Microbiology 06/19/21 03:10 Blood Culture - Preliminary Blood NEGATIVE TO DATE 06/19/21 03:45 Blood Culture - Preliminary Blood NEGATIVE TO DATE A&P Assessment and plan (1) Partial gastric outlet obstruction: Status post EGD with dilation, tolerating clear liquid diet Advance to full liquid diet Continue IV Protonix 40 mg twice daily, add Carafate 1 g p.o. twice daily Status: Acute Attestations Medical Necessity Statement*: As per primary Coding Level of Care Code Acute Seismograph Chief for hteresa Steen Diagnoses Partial gastric outlet obstruction K31.1
[2021-06-20] MEDS: dextrose 5%-sod chloride 0.9% 1,000 ML 75 ML IV (13:46)
[2021-06-20 15:04] LABS: Hematocrit 29.9 % (42.0-52.0); Hemoglobin 9.6 g/dL (11.7-16.6)
--- NOTE | 2021-06-20 16:52 | PM.PN ---
Subjective Subjective: Interval history: This morning patient was seen, no nausea, no vomiting, no chest pain, no palpitations, he is on a clear liquid diet, tolerating well, he has productive aphasia, Vitals/I&O/Wt Last Vital Signs Temp 98.9 F 06/20/21 15:28 Pulse 81 06/20/21 15:28 Resp 16 06/20/21 15:28 BP 167/74 06/20/21 15:28 Pulse Ox 97 06/20/21 15:28 06/20/21 06/20/21 06/20/21 06:59 14:59 22:59 Intake Total 640 / 4260 1790 / 1790 Output Total 510 / 1360 450 / 450 600 / 1050 Balance 130 / 2900 1340 / 1340 -600 / 740 Weight last 48 hrs Weight 81.647 kg Weight 74.843 kg Physical Exam Narrative: EXAM NARRATIVE: Right-sided hemiparesis, productive aphasia, word finding difficulty Const: COMMON NORMALS: no acute distress Resp: COMMON NORMALS: normal respiratory effort, No retractions, No use of accessory muscles and clear to auscultation bilaterally AUSCULTATION: clear to auscultation bilaterally Cardio: COMMON NORMALS: regular rate, regular rhythm, S1 normal heart sound present and S2 normal heart sound present RATE: regular rate RHYTHM: regular rhythm HEART SOUNDS: S1 normal heart sound present and S2 normal heart sound present GI: COMMON NORMALS: Normal to inspection, nondistended, normoactive bowel sounds present, Soft to palpation and non-tender PALPATION: Yes Soft to palpation Extremity: COMMON NORMALS: no pedal edema Data : 06/20/21 14:55 06/20/21 04:23 Micro: Microbiology 06/19/21 03:10 Blood Culture - Preliminary Blood NEGATIVE TO DATE 06/19/21 03:45 Blood Culture - Preliminary Blood NEGATIVE TO DATE A&P Assessment and plan (1) Hypoglycemic episode in patient with diabetes mellitus: Status: Acute (2) Aspiration pneumonitis: Status: Acute (3) Hypoxemia: Status: Acute (4) Dysphagia: Status: Acute (5) AUN (acute kidney injury): Status: Acute Additional A&P Information 80M presenting with hypoglycemia which is now improved after dextrose infusion, but also noted to have new hypoxemia and 02 requirement, progressive dysphagia , abdominal distension and ANU. Aspiration pneumonitis -Likely related to gastric outlet obstruction -Currently requiring 2 L -Monitor respiration, monitor respiratory status -Continue Zosyn -Clinical diet -Full code -Lovenox for DVT prophylaxis Hypoxia -Likely secondary aspiration pneumonitis - -We will continue to monitor Left greater saphenous vein DVT -Currently hemoglobin dropped from 11.2 down to 9.6, no bloody or black stools, has evidence of early iron deficiency anemia -I am concerned for the possibility of a slow GI bleed -For now we will follow VQ scan as above, continue DVT prophylaxis, monitor for bleeding -As per guidelines he needs anticoagulation for 45 days Acute anemia -Hemoglobin 9.6 -Evidence of early iron deficiency anemia -Hemoccult pending -Protonix, Carafate -Monitor for bloody or black stools Acute kidney injury improving -Likely sec to dehydration, IV fluids, hold lisinopril Gastric outlet obstruction -Has a history of esophageal thickening -No complaints of dysphagia, nausea, vomiting -EGD showed gastric antral inflammation, pathology pending -Protonix 40 IV twice daily -Carafate -Full code diet History of CVA -Right-sided hemiparesis, with word finding difficulty, slurring of words -Chronic Type 2 diabetes mellitus, insulin-dependent -Low-dose sliding scale NSTEMI -6-hour troponin is 46, baseline 56 -No chest pain complaints -No acute ST-T wave changes on EKG -Continue to monitor -Likely related to hypoxia, aspiration, however cannot rule out underlying cardiac etiology Attestations Medical Necessity Statement*: Patient requires hospitalization for aspiration pneumonitis, left greater saphenous vein DVT, ANU, gastric outlet obstruction, Coding Level of Care Code Acute Director Of Vocational Training for [facility] Diagnoses Hypoglycemic episode in patient with diabetes mellitus E11.649 Aspiration pneumonitis J69.0 Hypoxemia R09.02 Dysphagia R13.10 ANU (acute kidney injury) N17.9
[2021-06-20] MEDS: labetalol 200 mg Tablet PO (17:17)
[2021-06-20] MEDS: insulin lispro 100 unit/1 mL SUBCUT (17:22)
[2021-06-20 17:30] LABS: Glucose Point of Care 224 mg/dL (70-110)
[2021-06-20] MEDS: sucralfate 1 gm/10 mL Oral Liq UDC PO (20:10)
[2021-06-20 20:44] LABS: Glucose Point of Care 169 mg/dL (70-110)
[2021-06-20 20:46] LABS: Hematocrit 28.9 % (42.0-52.0); Hemoglobin 9.2 g/dL (11.7-16.6)
[2021-06-21] VITALS (8 sets, daily range): BP systolic 106–168; BP diastolic 52–79; PULSE 58–78; RESP 16–20; TEMP 36.5–37.3; O2SAT 97–99
[2021-06-21] MEDS: pramipexole 0.25 mg Tablet 0.125 MG PO ×4 (00:45→23:59)
[2021-06-21] MEDS: piperacillin-tazobactam 3.375 GM in sodium chloride 0.9% (plus) 50 ML IV ×3 (00:47→16:37)
[2021-06-21] MEDS: dextrose 5%-sod chloride 0.9% 1,000 ML 50 ML IV ×2 (00:57→16:44)
[2021-06-21 04:15] LABS: Hemoglobin 9.1 g/dL (11.7-16.6)
[2021-06-21 06:38] LABS: Glucose Point of Care 141 mg/dL (70-110)
[2021-06-21] MEDS: enoxaparin 40 mg/0.4 mL Syringe SUBCUT (08:44)
[2021-06-21] MEDS: insulin lispro 100 unit/1 mL SUBCUT ×3 (08:44→17:09)
[2021-06-21] MEDS: sucralfate 1 gm/10 mL Oral Liq UDC PO ×4 (08:45→20:21)
[2021-06-21] MEDS: mirtazapine 15 mg Tablet 45 MG PO (08:45)
[2021-06-21] MEDS: labetalol 200 mg Tablet PO ×2 (08:46→17:09)
[2021-06-21] MEDS: pantoprazole 40 mg SDV IVP ×2 (08:46→21:01)
[2021-06-21 09:15] LABS: Hematocrit 30.8 % (42.0-52.0); Hemoglobin 9.6 g/dL (11.7-16.6)
[2021-06-21 11:35] LABS: Glucose Point of Care 222 mg/dL (70-110)
--- NOTE | 2021-06-21 11:38 | PM.PN ---
Vitals/I&O/Wt Last Vital Signs Temp 98.6 F 06/21/21 11:22 Pulse 69 06/21/21 11:22 Resp 16 06/21/21 11:22 BP 165/69 06/21/21 11:22 Pulse Ox 98 06/21/21 11:22 06/20/21 06/21/21 06/21/21 22:59 06:59 14:59 Intake Total 890 / 2680 1038.75 / 3718.75 400 / 400 Output Total 1175 / 1625 750 / 2375 450 / 450 Balance -285 / 1055 288.75 / 1343.75 -50 / -50 Physical Exam Narrative: EXAM NARRATIVE: Right-sided hemiparesis, productive aphasia, word finding difficulty Const: COMMON NORMALS: no acute distress ORIENTATION/CONSCIOUSNESS: Yes awake, Yes oriented to person and Yes oriented to place; not oriented to time HENMT: COMMON NORMALS: normocephalic HEAD & SCALP: normocephalic Resp: COMMON NORMALS: normal respiratory effort, No retractions, No use of accessory muscles and clear to auscultation bilaterally AUSCULTATION: clear to auscultation bilaterally Cardio: COMMON NORMALS: regular rate, regular rhythm, S1 normal heart sound present and S2 normal heart sound present RATE: regular rate RHYTHM: regular rhythm HEART SOUNDS: S1 normal heart sound present and S2 normal heart sound present GI: COMMON NORMALS: Normal to inspection, nondistended, normoactive bowel sounds present, Soft to palpation and non-tender PALPATION: Yes Soft to palpation Extremity: COMMON NORMALS: no pedal edema Neuro: SENSORIUM/ORIENTATION: Yes oriented to person, Yes oriented to place and No oriented to time Data : 06/21/21 08:34 06/20/21 04:23 A&P Assessment and plan (1) Hypoglycemic episode in patient with diabetes mellitus: Status: Acute (2) Aspiration pneumonitis: Status: Acute (3) Hypoxemia: Status: Acute (4) Dysphagia: Status: Acute (5) ANU (acute kidney injury): Status: Acute Additional A&P Information 80M presenting with hypoglycemia which is now improved after dextrose infusion, but also noted to have new hypoxemia and 02 requirement, progressive dysphagia , abdominal distension and ANU. Aspiration pneumonitis -Likely related to gastric outlet obstruction -Currently requiring room air -Monitor respiration, monitor respiratory status -Continue Zosyn -Clinical diet -Full code -Lovenox for DVT prophylaxis Hypoxia -Likely secondary aspiration pneumonitis -We will continue to monitor Left greater saphenous vein DVT -Currently hemoglobin dropped from 11.2 down to 9.6, no bloody or black stools, has evidence of early iron deficiency anemia -I am concerned for the possibility of a slow GI bleed -Will give DVT prophylaxis Lovenox, monitor hemoglobin for the next 48 hours, some -For now we will follow VQ scan as above, continue DVT prophylaxis, monitor for bleeding -As per guidelines he needs anticoagulation for 45 days Acute anemia -Hemoglobin 9.6 -Evidence of early iron deficiency anemia -Hemoccult pending -Protonix, Carafate -Monitor for bloody or black stools Acute kidney injury improving -Likely sec to dehydration, IV fluids, hold lisinopril Gastric outlet obstruction -Has a history of esophageal thickening -No complaints of dysphagia, nausea, vomiting -EGD showed gastric antral inflammation, pathology pending -Protonix 40 IV twice daily -Carafate -Full code diet History of CVA -Right-sided hemiparesis, with word finding difficulty, slurring of words -Chronic Type 2 diabetes mellitus, insulin-dependent -Low-dose sliding scale NSTEMI -6-hour troponin is 46, baseline 56 -No chest pain complaints -No acute ST-T wave changes on EKG -Continue to monitor -Likely related to hypoxia, aspiration, however cannot rule out underlying cardiac etiology Attestations Medical Necessity Statement*: Patient requires hospitalization for aspiration pneumonitis, hypoxia, acute anemia, ANU, gastric outlet obstruction, hypoglycemia, requires hospitalization Coding Level of Care Code Acute Crabbing Machine Operator for [facility] Diagnoses Hypoglycemic episode in patient with diabetes mellitus E11.649 Aspiration pneumonitis J69.0 Hypoxemia R09.02 Dysphagia R13.10 ANU (acute kidney injury) N17.9
--- NOTE | 2021-06-21 12:08 | PM.PN ---
Subjective Subjective: Interval history: Patient tolerating full liquid diet, no nausea or vomiting, wants to have regular diet. Denies any abdominal pain Vitals/I&O/Wt Last Vital Signs Temp 98.6 F 06/21/21 11:22 Pulse 69 06/21/21 11:22 Resp 16 06/21/21 11:22 BP 165/69 06/21/21 11:22 Pulse Ox 98 06/21/21 11:22 06/20/21 06/21/21 06/21/21 22:59 06:59 14:59 Intake Total 890 / 3718.75 1038.75 / 3718.75 400 / 400 Output Total 1175 / 2375 750 / 2375 450 / 450 Balance -285 / 1343.75 288.75 / 1343.75 -50 / -50 Physical Exam Narrative: EXAM NARRATIVE: Abdomen: Soft, nontender, nondistended Data : 06/21/21 08:34 06/20/21 04:23 A&P Assessment and plan (1) Partial gastric outlet obstruction: Status post EGD with dilation, tolerating full liquid diet Advance to GI soft diet Continue IV Protonix 40 mg twice daily, add Carafate 1 g p.o. twice daily Patient is being worked up to rule out GI bleed since he has been started on anticoagulation for DVT Status: Acute Attestations Medical Necessity Statement*: As per primary Coding Level of Care Code Acute Room Service Waiter/Waitress for Melissa Steen Diagnoses Partial gastric outlet obstruction K31.1
[2021-06-21 13:38] LABS: Basophils % 0.5 %; Eosinophils # 0.1 10^3/uL (0.0-0.8); Eosinophils % 2.1 %; Hematocrit 32.5 % (42.0-52.0); Hemoglobin 10.1 g/dL (11.7-16.6); Lymphocytes # 1.7 10^3/uL (0.8-4.8); Lymphocytes % 26.7 %; Mean Corpuscular HGB Conc 31.1 g/dL (30.0-36.0); Mean Corpuscular Hemoglobin 27.9 pg (28.0-34.0); Mean Corpuscular Volume 89.8 fl (80-94); Monocytes # 0.4 10^3/uL (0.2-0.9); Monocytes % 5.7 %; Neutrophils # 3.98 10^3/uL (1.8-7.7); Neutrophils % 64.5 %; Nucleated Red Blood Cells % 0 %; Platelet Count 159 10^3/cmm (130-400); Red Blood Count 3.62 10^6/uL (4.1-5.3); Red Cell Distribution Width 14.6 % (12.1-15.1); White Blood Count 6.2 10^3/uL (4.0-10.0)
[2021-06-21 14:05] LABS: Alanine Aminotransferase 20 U/L (0-41); Albumin Level 3.3 g/dL (3.5-5.2); Alkaline Phosphatase 114 IU/L (40-130); Anion Gap 17.5 (5-19); Aspartate Amino Transferase 23 U/L (0-40); Blood Urea Nitrogen 15 mg/dL (8-23); Calcium 7.7 mg/dL (8.5-10.5); Carbon Dioxide 17 mmol/L (22-29); Chloride 109 mmol/L (98-107); Globulin 2.8 g/dL (1.3-4.6); Glucose 119 mg/dL (65-115); Osmolality Calculated 290 mOsm/kg (285-295); Potassium 4.5 mmol/L (3.5-5.1); Sodium 139 mmol/L (136-145); Total Bilirubin 0.4 mg/dL (0.15-1.2); Total Protein 6.1 g/dL (6.6-8.7)
[2021-06-21 17:03] LABS: Glucose Point of Care 246 mg/dL (70-110)
--- NOTE | 2021-06-21 17:15 | NMR_ITS ---
PROCEDURE INFORMATION: Exam: AR Lung Ventilation and Perfusion Imaging Exam date and time: 06/21/2021 5:15 PM Age: 80 years old Clinical indication: Abnormal findings; Abnormal diagnostic tests and other: Left gsv dvt; Elevated d-dimer; Dyspnea; Additional info: Gsv thrombus TECHNIQUE: Imaging protocol: Nuclear pulmonary ventilation with aerosol or gas was performed followed by perfusion. Views: Ventilation acquired with multiple projections. Perfusion acquired with multiple projections. Radiopharmaceutical: 4.6 mCi Tc-99m MAA (Macroaggregated Albumin), IV. 28.6 mCi Tc-99m DTPA (DTPA Aerosol), Inhalation. COMPARISON: CR XR chest 1V portable [id number] 06/19/2021 1:50 PM FINDINGS: Ventilation: Normal. No ventilation defects. Perfusion: Normal. No perfusion defects. AR/AR pul vent and perfus* [id number] IMPRESSION: Normal perfusion. No evidence of pulmonary embolism.
[2021-06-21] MEDS: acetaminophen 325 mg Tablet 650 MG PO (19:24)
[2021-06-21 20:43] LABS: Glucose Point of Care 204 mg/dL (70-110)
[2021-06-22] VITALS (9 sets, daily range): BP systolic 127–195; BP diastolic 53–82; PULSE 59–77; RESP 14–20; TEMP 36.4–37.1; O2SAT 96–97
[2021-06-22 05:15] LABS: Basophils % 0.5 %; Eosinophils # 0.2 10^3/uL (0.0-0.8); Eosinophils % 2.7 %; Hematocrit 30.4 % (42.0-52.0); Hemoglobin 9.6 g/dL (11.7-16.6); Lymphocytes # 2.3 10^3/uL (0.8-4.8); Lymphocytes % 35.6 %; Mean Corpuscular HGB Conc 31.6 g/dL (30.0-36.0); Mean Corpuscular Hemoglobin 28.1 pg (28.0-34.0); Mean Corpuscular Volume 88.9 fl (80-94); Mean Platelet Volume 11.5 fL (7.4-10.4); Monocytes # 0.4 10^3/uL (0.2-0.9); Monocytes % 6.1 %; Neutrophils # 3.59 10^3/uL (1.8-7.7); Neutrophils % 54.6 %; Nucleated Red Blood Cells % 0 %; Platelet Count 165 10^3/cmm (130-400); Red Blood Count 3.42 10^6/uL (4.1-5.3); Red Cell Distribution Width 14.6 % (12.1-15.1); White Blood Count 6.6 10^3/uL (4.0-10.0)
[2021-06-22 05:40] LABS: Alanine Aminotransferase 20 U/L (0-41); Albumin Level 3.2 g/dL (3.5-5.2); Alkaline Phosphatase 118 IU/L (40-130); Anion Gap 16.7 (5-19); Aspartate Amino Transferase 16 U/L (0-40); Blood Urea Nitrogen 18 mg/dL (8-23); Carbon Dioxide 17 mmol/L (22-29); Chloride 109 mmol/L (98-107); Globulin 2.6 g/dL (1.3-4.6); Glucose 168 mg/dL (65-115); Magnesium 1.3 mg/dL (1.7-2.3); Osmolality Calculated 292 mOsm/kg (285-295); Potassium 4.7 mmol/L (3.5-5.1); Sodium 138 mmol/L (136-145); Total Bilirubin 0.4 mg/dL (0.15-1.2); Total Protein 5.8 g/dL (6.6-8.7)
[2021-06-22] MEDS: acetaminophen 325 mg Tablet 650 MG PO ×3 (06:14→17:25)
[2021-06-22 06:36] LABS: Glucose Point of Care 384 mg/dL (70-110)
[2021-06-22] MEDS: piperacillin-tazobactam 3.375 GM in sodium chloride 0.9% (plus) 50 ML IV ×4 (08:13→23:32)
[2021-06-22] MEDS: enoxaparin 40 mg/0.4 mL Syringe SUBCUT (08:17)
[2021-06-22] MEDS: insulin lispro 100 unit/1 mL SUBCUT ×3 (08:17→17:26)
[2021-06-22] MEDS: pramipexole 0.25 mg Tablet 0.125 MG PO ×3 (08:28→23:32)
[2021-06-22] MEDS: amlodipine 10 mg Tablet PO (08:28)
[2021-06-22] MEDS: labetalol 200 mg Tablet PO ×2 (08:28→17:25)
[2021-06-22] MEDS: mirtazapine 15 mg Tablet 45 MG PO (08:28)
[2021-06-22] MEDS: sucralfate 1 gm/10 mL Oral Liq UDC PO ×4 (08:28→20:30)
[2021-06-22] MEDS: magnesium sulfate premix 4 GM/100 ML PREMIX IV (09:08)
--- NOTE | 2021-06-22 10:28 | PM.PN ---
Subjective Subjective: Interval history: Patient was seen this morning, afebrile overnight, no nausea, no vomiting, currently tolerating a diet well, he did have a bowel movement yesterday, denies any choking Vitals/I&O/Wt Last Vital Signs Temp 98.1 F 06/22/21 08:00 Pulse 77 06/22/21 08:00 Resp 18 06/22/21 08:00 BP 187/82 06/22/21 08:00 Pulse Ox 96 06/22/21 08:00 06/21/21 06/22/21 06/22/21 22:59 06:59 14:59 Intake Total 1439.167 / 2129.167 150 / 2279.167 480 / 480 Output Total 875 / 1325 1550 / 2875 400 / 400 Balance 564.167 / 804.167 -1400 / -595.833 80 / 80 Physical Exam Narrative: EXAM NARRATIVE: Right-sided hemiparesis, productive aphasia, word finding difficulty Const: COMMON NORMALS: no acute distress and patient oriented x3 Resp: COMMON NORMALS: normal respiratory effort, No retractions, No use of accessory muscles and clear to auscultation bilaterally AUSCULTATION: clear to auscultation bilaterally Cardio: COMMON NORMALS: regular rate, regular rhythm, S1 normal heart sound present and S2 normal heart sound present RATE: regular rate RHYTHM: regular rhythm HEART SOUNDS: S1 normal heart sound present and S2 normal heart sound present GI: COMMON NORMALS: Normal to inspection, nondistended, normoactive bowel sounds present, Soft to palpation, non-tender, No hepatosplenomegaly present, no masses and no bruits PALPATION: Yes Soft to palpation and Yes No hepatosplenomegaly present Extremity: COMMON NORMALS: capillary refill normal, no clubbing, cyanosis or edema, no calf tenderness and no pedal edema Neuro: COMMON NORMALS: patient oriented x3 Psych: COMMON NORMALS: mental status grossly normal Data : 06/22/21 04:22 06/22/21 04:22 A&P Assessment and plan (1) Hypoglycemic episode in patient with diabetes mellitus: Status: Acute (2) Aspiration pneumonitis: Status: Acute (3) Hypoxemia: Status: Acute (4) Dysphagia: Status: Acute (5) ANU (acute kidney injury): Status: Acute Additional A&P Information 80M presenting with hypoglycemia which is now improved after dextrose infusion, but also noted to have new hypoxemia and 02 requirement, progressive dysphagia , abdominal distension and ANU. Aspiration pneumonitis -Likely related to gastric outlet obstruction -Currently requiring room air -Monitor respiration, monitor respiratory status -Continue Zosyn -Clinical diet -Full code -Lovenox for DVT prophylaxis Hypoxia -Likely secondary aspiration pneumonitis -We will continue to monitor Left greater saphenous vein DVT -Currently hemoglobin dropped from 11.2 down to 9.6, no bloody or black stools, has evidence of early iron deficiency anemia -I am concerned for the possibility of a slow GI bleed -Hemoccult stool pending, will switch to therapeutic Lovenox, monitor hemoglobin for the next 24 hours -For now we will follow VQ scan as above, continue DVT prophylaxis, monitor for bleeding -As per guidelines he needs anticoagulation for 45 days -Likely discharge tomorrow Acute anemia -Hemoglobin 9.6 -Evidence of early iron deficiency anemia -Hemoccult pending -Protonix, Carafate -Monitor for bloody or black stools Acute kidney injury improving -Likely sec to dehydration, IV fluids, hold lisinopril Gastric outlet obstruction -Has a history of esophageal thickening -No complaints of dysphagia, nausea, vomiting -EGD showed gastric antral inflammation, pathology pending -Protonix 40 IV twice daily -Carafate -Full code diet History of CVA -Right-sided hemiparesis, with word finding difficulty, slurring of words -Chronic Type 2 diabetes mellitus, insulin-dependent -Low-dose sliding scale NSTEMI -6-hour troponin is 46, baseline 56 -No chest pain complaints -No acute ST-T wave changes on EKG -Continue to monitor -Likely related to hypoxia, aspiration, however cannot rule out underlying cardiac etiology Attestations Medical Necessity Statement*: Patient requires hospitalization for aspiration pneumonia, hypoxia, left greater saphenous vein DVT Coding Level of Care Code Acute Public Relations Consultant for [facility] Diagnoses Hypoglycemic episode in patient with diabetes mellitus E11.649 Aspiration pneumonitis J69.0 Hypoxemia R09.02 Dysphagia R13.10 ANU (acute kidney injury) N17.9
[2021-06-22 10:40] LABS: Glucose Point of Care 208 mg/dL (70-110)
[2021-06-22] MEDS: pantoprazole 40 mg SDV IVP ×2 (10:44→22:36)
--- NOTE | 2021-06-22 11:43 | PC.SOCIAL ---
IMM Update Pg. 2 of IMM updated and reviewed with patient's over the phone who verbalized understanding. Copy provided.
--- NOTE | 2021-06-22 12:37 | PC.NURSE ---
[facility] message from Charge Nurse Raquel to call patient's with update. Attempted to return call to patient's Carla [phone], no answer.
--- NOTE | 2021-06-22 13:32 | PC.NURSE ---
patient's at bedside. updated patient's
[2021-06-22 17:19] LABS: Glucose Point of Care 255 mg/dL (70-110)
[2021-06-22] MEDS: enoxaparin 80 mg/0.8 mL Syringe SUBCUT (17:26)
[2021-06-22 20:55] LABS: Glucose Point of Care 237 mg/dL (70-110)
[2021-06-23] MEDS: acetaminophen 325 mg Tablet 650 MG PO ×2 (00:27→06:17)
[2021-06-23 04:00] VITALS: BP 163/78; PULSE 60; RESP 18; TEMP 36.9
[2021-06-23 05:33] LABS: Basophils % 0.3 %; Eosinophils # 0.2 10^3/uL (0.0-0.8); Eosinophils % 3.5 %; Hematocrit 30.2 % (42.0-52.0); Hemoglobin 9.4 g/dL (11.7-16.6); Lymphocytes # 2.1 10^3/uL (0.8-4.8); Lymphocytes % 33.1 %; Mean Corpuscular HGB Conc 31.1 g/dL (30.0-36.0); Mean Corpuscular Hemoglobin 27.6 pg (28.0-34.0); Mean Corpuscular Volume 88.8 fl (80-94); Mean Platelet Volume 11.4 fL (7.4-10.4); Monocytes # 0.4 10^3/uL (0.2-0.9); Monocytes % 6.8 %; Neutrophils # 3.54 10^3/uL (1.8-7.7); Neutrophils % 55.8 %; Nucleated Red Blood Cells % 0 %; Platelet Count 171 10^3/cmm (130-400); Red Cell Distribution Width 14.6 % (12.1-15.1); White Blood Count 6.3 10^3/uL (4.0-10.0)
[2021-06-23] MEDS: enoxaparin 80 mg/0.8 mL Syringe SUBCUT (05:37)
[2021-06-23] MEDS: dextrose 5%-sod chloride 0.9% 1,000 ML 50 ML IV (05:37)
[2021-06-23 05:49] LABS: Alanine Aminotransferase 19 U/L (0-41); Albumin Level 3.1 g/dL (3.5-5.2); Alkaline Phosphatase 128 IU/L (40-130); Aspartate Amino Transferase 14 U/L (0-40); Blood Urea Nitrogen 21 mg/dL (8-23); Carbon Dioxide 16 mmol/L (22-29); Chloride 108 mmol/L (98-107); Globulin 2.9 g/dL (1.3-4.6); Glucose 214 mg/dL (65-115); Magnesium 1.9 mg/dL (1.7-2.3); Osmolality Calculated 289 mOsm/kg (285-295); Sodium 135 mmol/L (136-145); Total Bilirubin 0.4 mg/dL (0.15-1.2)
[2021-06-23 06:00] VITALS: PULSE 58
[2021-06-23 06:29] LABS: Glucose Point of Care 206 mg/dL (70-110)
[2021-06-23 07:00] VITALS: BP 154/73; PULSE 64; RESP 16; O2SAT 98
[2021-06-23] MEDS: insulin lispro 100 unit/1 mL SUBCUT ×2 (09:04→11:41)
[2021-06-23] MEDS: pantoprazole 40 mg SDV IVP (09:04)
[2021-06-23] MEDS: sennosides-docusate Tablet 1 TAB PO (09:05)
[2021-06-23] MEDS: sucralfate 1 gm/10 mL Oral Liq UDC PO (09:05)
[2021-06-23] MEDS: pramipexole 0.25 mg Tablet 0.125 MG PO (09:05)
[2021-06-23] MEDS: amlodipine 10 mg Tablet PO (09:05)
[2021-06-23] MEDS: mirtazapine 15 mg Tablet 45 MG PO (09:05)
[2021-06-23] MEDS: piperacillin-tazobactam 3.375 GM in sodium chloride 0.9% (plus) 50 ML IV (09:05)
[2021-06-23] MEDS: labetalol 200 mg Tablet PO (09:05)
--- NOTE | 2021-06-23 10:12 | PM.DCS ---
Discharge Providers Date of Admission: 06/19/21 05:17 Date of Discharge: June 23, 2021 Attending Provider at Admission: Kerry Jalloh MD Attending Provider at Discharge: Pete Bae MD Primary Care Provider: SETH Blackburn Diagnoses at Discharge Discharge Diagnosis (1) Hypoglycemic episode in patient with diabetes mellitus: Status: Acute (2) Aspiration pneumonitis: Status: Acute (3) Hypoxemia: Status: Acute (4) Dysphagia: Status: Acute (5) ANU (acute kidney injury): Status: Acute Reason for Visit Reason for Visit: AMS Hospital Course Hospital Course Fahad Snow is a 80 year old male with PMH DM, HTN, CVA, residual right hemiparesis, presenting to the ER with c/o being unresponsive at home and found to be hypoglycemic at home with blood sugar 37 upon EMS arrival. He has since received 50% dextrose and 10% IVF with improvement in blood sugar to 90s now. Patient was admitted to [facility] for aspiration pneumonitis, aspiration pneumonia likely related to gastric outlet obstruction, received broad-spectrum antibiotic therapy, clinically proved, weaned down to room air. Patient did require oxygen on admission, given his left greater saphenous vein DVT, there was concerns for pulmonary emboli, his VQ scan had low probability of pulmonary emboli. He was found to have a left greater saphenous vein DVT, there was concerns for anemia, early iron deficiency anemia during his hospitalization, and or possibly a slow GI bleed, he is hemoglobin was monitored, monitored on therapeutic Lovenox. His hemoglobin remained stable, no blood or black stools, no hemodynamic compromise, will discharge on Protonix 40 twice daily, Carafate, with Eliquis for left greater saphenous vein DVT for at least 45 days. Decision to pursue anticoagulation was given the extent of his left greater saphenous vein DVT, it was quite extensive, above the level of the knee, and he has a history of CVA and is relatively immobile. Patient was advised if he were to have any blood or black stools go to the emergency room, follow-up with primary care provider 1 week for recheck hemoglobin. He also had ANU on admission sec to dehydration, improved with fluid hydration. Patient was also found to have a gastric outlet obstruction on CAT scan imaging, resulting in nausea, vomiting and dehydration and hypoglycemia, had an EGD which showed gastric antral inflammation, so far pathology is negative for malignancy, discharged on Protonix, Carafate with a follow-up with general surgery as outpatient. For his type 2 diabetes mellitus have decreased his Lantus to 15 units daily, low-dose sliding scale, with instructions to monitor blood sugars very closely, to not give himself insulin he if he does not consume meals Physical Exam Const: COMMON NORMALS: no acute distress and patient oriented x3 Resp: COMMON NORMALS: normal respiratory effort, No retractions, No use of accessory muscles and clear to auscultation bilaterally AUSCULTATION: clear to auscultation bilaterally Cardio: COMMON NORMALS: regular rate, regular rhythm, S1 normal heart sound present and S2 normal heart sound present RATE: regular rate RHYTHM: regular rhythm HEART SOUNDS: S1 normal heart sound present and S2 normal heart sound present GI: COMMON NORMALS: Normal to inspection, nondistended, normoactive bowel sounds present, Soft to palpation and non-tender PALPATION: Yes Soft to palpation Extremity: COMMON NORMALS: no pedal edema Neuro: COMMON NORMALS: patient oriented x3 Discharge Data Data Completed and Pending: Completed Studies During Hospitalization Category Date Time Status CT chest abd pel wo con Routine Cat Scan 06/19/21 07:[address] head wo con* 7 0450 Urgent Cat Scan 06/19/21 03:01 Completed XR KUB portable 7 4018 Routine Exams 06/19/21 13:38 Completed XR chest 1V andreia ble [id number] Routine Exams 06/19/21 13:38 Completed XR chest 1V andreia ble [id number] Urgent Exams 06/19/21 02:55 Completed NM pul vent and p erfus* [id number] Routi ne Nuc Med 06/21/21 17:15 Completed Pathology: Surgic al [PTH] Routine Pth 06/19/21 13:08 [place] [id number] Routin e Ultrasound 06/19/21 07:49 Completed Pending at discharge Category Date Time Status Blood Culture Sta t Lab 06/19/21 03:10 Results Complete Blood Co unt w/Auto AM LABS Lab 06/24/21 04:00 Ordered Comprehensive Met abolic Panel AM LA BS Lab 06/24/21 04:00 Ordered Immunochemical Fe dandre OCB Routine Lab 06/20/21 16:18 Ordered Magnesium AM LABS Lab 06/24/21 04:00 Ordered Labs from last 24 hours 01/06/23/21 06/23/21 06:16 04:36 04:36 WBC 6.3 RBC 3.40 L Hgb 9.4 L Hct 30.2 L MCV 88.8 MCH 27.6 L MCHC 31.1 RDW 14.6 Plt Count 171 MPV 11.4 H Neut % (Auto) 55.8 Lymph % (Auto) 33.1 [place] % (Auto) 6.8 Eos % (Auto) 3.5 Baso % (Auto) 0.3 Neut # (Auto) 3.54 Lymph # (Auto) 2.1 [place] # (Auto) 0.4 Eos # (Auto) 0.2 Baso # (Auto) 0.0 Nucleated RBC % (a uto) 0 Nucleated RBCs # 0.0 Sodium 135 L Potassium 5.0 Chloride 108 H Carbon Dioxide 16 L Anion Gap 16.0 BUN 21 Creatinine 1.5 H GFR Calculation Not Reportable Glucose 214 H POC Glucose 206 H Calculated Osmolal ity 289 Calcium 8.0 L Magnesium 1.9 Total Bilirubin 0.4 AST 14 ALT 19 Alkaline Phosphata se 128 Total Protein 6.0 L Albumin 3.1 L Globulin 2.9 06/22/21 06/22/21 06/22/21 20:44 16:51 10:36 WBC RBC Hgb Hct MCV MCH MCHC RDW Plt Count MPV Neut % (Auto) Lymph % (Auto) [place] % (Auto) Eos % (Auto) Baso % (Auto) Neut # (Auto) Lymph # (Auto) [place] # (Auto) Eos # (Auto) Baso # (Auto) Nucleated RBC % (a uto) Nucleated RBCs # Sodium Potassium Chloride Carbon Dioxide Anion Gap BUN Creatinine GFR Calculation Glucose POC Glucose 237 H 255 H 208 H Calculated Osmolal ity Calcium Magnesium Total Bilirubin AST ALT Alkaline Phosphata se Total Protein Albumin Globulin Vitals: Last Vital Signs Temp 98.4 F 06/23/21 04:00 Pulse 64 06/23/21 07:00 Resp 16 06/23/21 07:00 BP 154/73 06/23/21 07:00 Pulse Ox 98 06/23/21 07:00 Discharge Plan Discharge Patient Disposition: Home Condition: Stable Prescriptions: New amlodipine 10 mg Tablet 10 mg PO DAILY 30 Days Qty: 30 RF: 0 sucralfate [Carafate] 1 gram tablet 1 g PO BID 30 Days Qty: 60 RF: 0 amoxicillin-pot clavulanate [Augmentin] 875-125 mg tablet 1 tab PO BID 7 Days Qty: 14 RF: 0 Eliquis DVT-PE Treat 30D Start 5 mg (74 tabs) tablets,dose pack See Rx Instructions .ROUTE .COMPLEX Qty: 74 RF: 0 pantoprazole [Protonix] 40 mg tablet,delayed release (DR/EC) 40 mg PO BID 30 Days Qty: 60 RF: 0 insulin lispro [Humalog KwikPen Insulin] 100 unit/mL insulin pen See Rx Instructions .ROUTE .COMPLEX Qty: 15 RF: 0 Continued labetalol 200 mg tablet 200 mg PO BID@1000,1800 RF: 0 pramipexole 0.125 mg tablet 0.125 mg PO TID@10,14,18 RF: 0 lisinopril 20 mg tablet 20 mg PO DAILY@1000 RF: 0 mirtazapine 45 mg tablet 45 mg PO DAILY@1000 RF: 0 folic acid 1 mg tablet 1 mg PO DAILY@1000 RF: 0 hydrochlorothiazide 12.5 mg tablet 12.5 mg PO DAILY@1000 RF: 0 Lumigan 0.01 % drops See Rx Instructions .ROUTE .COMPLEX RF: 0 pantoprazole [Protonix] 40 mg tablet,delayed release (DR/EC) 40 mg PO DAILY Qty: 60 RF: 0 Changed Lantus Solostar U-100 Insulin 100 unit/mL (3 mL) insulin pen 15 unit SUBCUT DAILY@2200 Qty: 0 RF: 0 Discontinued glipizide 5 mg tablet 10 mg PO DAILY@1000 RF: 0 Discharge Orders: Discharge Order (Routine); Ordered 06/23/21 Ordered By: Pete Bae Referrals: [facility] ([facility]) [Outside] Martha Paiz FNP [Primary Care Provider] - 06/27/21 10:30 am Discharge Diet: Cardiac Discharge Activity: Resume usual activity Patient Instructions: GI Discharge Instructions, Opioid Safety Activity Restrictions/Additional Instructions: -Inject subcut, 3 times daily, before meals, based on sliding scale provided Insulin Units 141-180 mg/dl 2 unit/SQ 181-220 mg/dl 4 units/SQ 221-260 mg/dl 6 units/SQ 261-300 mg/dl 8 units/SQ 301-350 mg/dl 10 units/SQ 351-400 mg/dl 12 units/SQ greater than 400 mg/dl 14 units/SQ -Do not inject insulin if you do not eat -You have suffered hypoglycemia in the past, hypoglycemia kills, please only give yourself insulin if you eat meals -Please follow-up with general surgery in 1 to 2 weeks -Take antibiotics as prescribed -Take blood thinners as prescribed -Follow-up with primary care provider in 1 week -If you develop bloody or black stools go to the emergency room immediately -Have your primary care recheck your hemoglobin in 1 week -Please drink Ensure drinks at least twice a day Discharge Attestations Time Spent in Discharge Care*: less than 30 min Quality Metrics Clinical Quality Measures During this hospital stay, did patient experience: None Coding Level of Care Code Acute Chg [facility] note Diagnoses Hypoglycemic episode in patient with diabetes mellitus E11.649 Aspiration pneumonitis J69.0 Hypoxemia R09.02 Dysphagia R13.10 ANU (acute kidney injury) N17.9
--- NOTE | 2021-06-23 10:54 | PC.NURSE ---
Faxed SB[facility] to [facility]
--- NOTE | 2021-06-23 11:04 | PC.NURSE ---
Notified patient's that patient is being discharged.
[2021-06-23 11:08] LABS: Glucose Point of Care 585 mg/dL (70-110)
[2021-06-23 11:08] LABS: Glucose Point of Care 445 mg/dL (70-110)
[2021-06-23 11:16] VITALS: BP 138/71; PULSE 69; RESP 20; O2SAT 94
--- NOTE | 2021-06-23 14:20 | PC.NURSE ---
discharge instructions given to patient and . both verbalize understanding of instructions. patient taken to private vehicle via wheelchair and assisted into vehicle.
--- NOTE | 2021-06-23 14:22 | PC.NURSE ---
scripts faxed to [facility] pharmacy. patient's said she will pick them up.
[2021-06-23 14:23] VITALS: BP 138/71; PULSE 69; RESP 20; O2SAT 94
--- NOTE | 2021-06-23 15:13 | PC.NURSE ---
scripts were faxed to [facility] pharmacy. patient's family went to [facility]. Paula in pharmacy said that insurance wants to substitute some meds and patient's needs glucose monitor and strips. Benefits Coordinator notified Dr Bae,[phone] niru was discharged and pharmacy called me and said his insurance prefers Levemir instead of Lantus and Novolog instead of Humalog and said they need a glucose monitor and testing strips. Read 06/23/21, 15:09 Ill send in strips, levemir is fine and novolognis fine 06/23/21, 15:10 his pharmacy is [facility] pharmacy Read 06/23/21, 15:10 she needs a monitor too. Read 06/23/21, 15:10 Okay 06/23/21, 15:11 Can you call pharmacy vic okavani substituion and i will send the rest lead technical writer called pharmacy and told Paula what Dr Bae said.
== END 2021-06-23 14:24 | disposition home health service (06) | DRG 177 ==
LOC: ER 05:16 → MEDSURG 05:38
PROVIDERS: Surgery; Admitting Provider Student in an Organized Health Care Education/Training Program; Emergency Provider Emergency Medicine; PCP Nurse Practitioner Family; Visit Provider Family Medicine
PROC: 0DJ08ZZ Inspection of Upper Intestinal Tract, Via Natural or Artificial Opening Endoscopic (ICD-10-PCS; CPT 43235; principal; 2021-06-19 11:45)
DX: J69.0 Pneumonitis due to inhalation of food and vomit (principal); I21.4 Non-ST elevation (NSTEMI) myocardial infarction; I82.812 Embolism and thrombosis of superficial veins of left lower extremity; I69.951 Hemiplegia and hemiparesis following unspecified cerebrovascular disease affecting right dominant side; N17.9 Acute kidney failure, unspecified; K31.1 Adult hypertrophic pyloric stenosis; E11.649 Type 2 diabetes mellitus with hypoglycemia without coma; I10 Essential (primary) hypertension; I69.928 Other speech and language deficits following unspecified cerebrovascular disease; K21.9 Gastro-esophageal reflux disease without esophagitis; Z85.51 Personal history of malignant neoplasm of bladder; Z85.828 Personal history of other malignant neoplasm of skin; Z87.891 Personal history of nicotine dependence; E86.0 Dehydration; R13.10 Dysphagia, unspecified; Z79.4 Long term (current) use of insulin; D50.9 Iron deficiency anemia, unspecified
CPT/HCPCS: 36415; 36416; 36600; 43239; 43249; 70450; 71045; 71250; 74018; 74176; 78014; 80051; 80053; 81001; 82330; 82728; 82803; 82805; 82962; 83540; 83550; 83605; 83735; 83880; 84145; 84443; 84484; 85014; 85018; 85025; 85378; 86140; 87040; 87631; 87635; 88305; 88342; 92523; 92610; 93005; 93970; 94664; 96360; 96372; 97162; 97165; 97530; 99285; A9540; A9567; C9113; J0330; J1650; J1815; J2370; J2543; J2704; J3010; J3475; J3490; J7030

== ENCOUNTER 2021-07-26 18:31 | Emergency (ER) | payer MEDICARE, SELFPAY ==
[2021-07-26 18:38] VITALS: BMI 25.7
[2021-07-26 18:49] LABS: Basophils % 0.3 %; Eosinophils # 0.1 10^3/uL (0.0-0.8); Eosinophils % 0.7 %; Hematocrit 27.6 % (42.0-52.0); Hemoglobin 8.2 g/dL (11.7-16.6); Lymphocytes # 5.1 10^3/uL (0.8-4.8); Lymphocytes % 40.8 %; Mean Corpuscular HGB Conc 29.7 g/dL (30.0-36.0); Mean Corpuscular Hemoglobin 28.5 pg (28.0-34.0); Mean Corpuscular Volume 95.8 fl (80-94); Mean Platelet Volume 12.5 fL (7.4-10.4); Monocytes # 0.5 10^3/uL (0.2-0.9); Neutrophils # 6.69 10^3/uL (1.8-7.7); Neutrophils % 53.6 %; Nucleated Red Blood Cells % 0 %; Platelet Count 155 10^3/cmm (130-400); Red Blood Count 2.88 10^6/uL (4.1-5.3); Red Cell Distribution Width 16.5 % (12.1-15.1); White Blood Count 12.5 10^3/uL (4.0-10.0)
[2021-07-26] MEDS: DOPamine drip 400 MG/250 ML PREMIX 31.47 MG IV (19:00)
[2021-07-26] MEDS: EPINEPHrine 2.5 MG in sodium chloride 0.9% 250 ML 2034.1 MG IV (19:07)
[2021-07-26 19:13] VITALS: RESP 14
[2021-07-26 19:27] LABS: Troponin(5th) Baseline 99 ng/L (0-15)
--- NOTE | 2021-07-26 19:34 | XRR_ITS ---
PROCEDURE INFORMATION: Exam: XR Chest Exam date and time: 07/26/2021 7:34 PM Age: 80 years old Clinical indication: Other: Not specified; Patient HX: Chest pain starting Wednesday, passed out prior to arrival; Low pulse; Additional info: SOB. Intubated. Central line placed TECHNIQUE: Imaging protocol: XR of the chest. Views: 1 view. COMPARISON: CR XR chest 1V portable [id number] 06/19/2021 1:50 PM FINDINGS: Tubes, catheters and devices: There is an endotracheal tube 25 mm above the concepcion. There is a feeding tube with tip off the bottom edge of the radiograph. There is a central venous catheter its tip overlying the superior vena cava. Lungs: There is artifact overlying the right upper lobe with questionable infiltrate in the right upper lobe. Pleural spaces: Unremarkable. No pleural effusion. No pneumothorax. Heart/Mediastinum: Unremarkable. No cardiomegaly. Bones/joints: Rotator cuff tear is suspected on the left. XR/XR chest 1V portable [id number] IMPRESSION: 1. New tubes and catheters. No pneumothorax. 2. Questionable right upper lobe infiltrate.
[2021-07-26 19:36] LABS: Alanine Aminotransferase 76 U/L (0-41); Albumin Level 3.8 g/dL (3.5-5.2); Alkaline Phosphatase 111 IU/L (40-130); Anion Gap 29.3 (5-19); Aspartate Amino Transferase 58 U/L (0-40); Calcium 7.5 mg/dL (8.5-10.5); Chloride 104 mmol/L (98-107); Glucose 422 mg/dL (65-115); NT Pro B Type Natriuretic Pept 1413 pg/mL (0-450); Potassium 6.3 mmol/L (3.5-5.1); Sodium 136 mmol/L (136-145); Total Bilirubin 0.4 mg/dL (0.15-1.2); Total Protein 5.8 g/dL (6.6-8.7)
--- NOTE | 2021-07-26 19:41 | W.ED.GENADLT ---
HPI - General Adult General: Chief complaint: Cardiac Arrest/CPR Stated complaint: POST CODE Time Seen by Provider: 07/26/21 18:32 Source: EMS Mode of arrival: EMS Limitations: altered mental status History of Present Illness: 80-year-old male that presents here with EMS. Per EMS he had been having chest pain yesterday night. The passing out today per family. He states on the way here he became increasingly bradycardic down into the 20s and then coded. They given him atropine and epinephrine currently has any back still has a pulse in the lower 30s with agonal respirations attempted intubation was unable intubate him he is moving his extremities slightly but not responding. 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 gastric outlet obstruction Surgical History H/O colonoscopy 30 yrs ago H/O esophagogastroduodenoscopy History of tonsillectomy Hx of cholecystectomy Family History Other Cancer Denies family history of Anesthesia complication Bleeding disorder Social History Smoking and tobacco status: never smoked Alcohol intake: former Household members: spouse Marital status: Current occupational status: retired History of recent travel: No Physical Exam Const: COMMON NORMALS: negative for patient oriented x3 OTHER: Agonal breathing minimally responsive HENMT: COMMON NORMALS: normocephalic and external ears normal HEAD & SCALP: normocephalic EXTERNAL EAR: Yes external ears normal MOUTH: Normal oral and palatal mucosa present Eye: COMMON NORMALS: Equal, round and reactive pupils present PUPIL: Yes Equal, round and reactive pupils present Neck/C-Spine: COMMON NORMALS: full ROM and supple Lymph: LYMPHATIC: no lymphadenopathy noted Chest: COMMONS NORMALS: normal inspection of the chest Resp: OTHER: Agonal respirations at this time Cardio: OTHER: Bradycardic with faint pulses GI: COMMON NORMALS: Normal to inspection, nondistended, normoactive bowel sounds present Back/Pelvis: COMMON NORMALS: thoracic and lumbar spine normal to inspection Extremity: COMMON NORMALS: normal to inspection Neuro: COMMON NORMALS: negative for patient oriented x3 Psych: COMMON NORMALS: negative for mental status grossly normal Procedures Central Line Placement Right IJ: Time Out Performed: Yes Patient Placed on Monitor/Pulse Ox: Yes MD Prep: mask, gown and gloves Central Line Prep: Chlorhexidine scrub Ultrasound Used for Placement: Yes Central Line Lumen Inserted: triple Post Procedure: sutured in place, good blood return, all ports aspirated, flushed, capped and sterile dressing applied Post Procedure X-Ray: tip of catheter in good position and no pneumothorax seen Patient Tolerated Procedure: well Complications: none Intubation Time out performed: Yes sedative: Etomidate Mg Given: 20 paralytic: Vecuronium Mg Given: 20 Laryngoscope: Kika ET Tube Size: 8 ET Tube Uncuffed: No Tube Secured Depth (cm): 25 Tube Secured Location: lips Tube Placement Confirmation: visualized tube passing through cords, equal breath sounds bilaterally and no breath sounds over epigastrium Patient Tolerated Procedure: well Intubation Complications: none Course Reevaluation(s): Reevaluation #1: When patient arrived he had agonal respirations with bradycardia did intubate him after intubation pulses were lost. After multiple rounds of epinephrine did have return of spontaneous Circulation his heart rate was still in the 30s with appearance of heart block patient was then externally paced at that time. Central line is been started he has been started on a dopamine drip as well up spoke to cardiology who is coming in to see patient. Time: 19:22 Vital Signs: Vital signs: Vital Signs Respiratory Rate 14 07/26/21 19:13 [facility] - General Adult Medical Decision Making Patient presents with cardiac arrest along with severe bradycardia. Once arrived and spoke to her at length she states that he would not want all this done. I did inform her that if we did comfort care he would likely pass away she understands this she states that she would not want him to have the external pacemaker and does not want him intubated so decision was to be to make him comfort care did disconnect pacemaker and ET tube patient's time of subsequence currently was at 1959 Lab Data : 07/26/21 18:45 07/26/21 18:45 Laboratory Results WBC 12.5 10^3/uL (4.0-10.0) H 07/26/21 18:45 RBC 2.88 10^6/uL (4.1-5.3) L 07/26/21 18:45 Hgb 8.2 g/dL (11.7-16.6) L 07/26/21 18:45 Hct 27.6 % (42.0-52.0) L 07/26/21 18:45 MCV 95.8 fl (80-94) H 07/26/21 18:45 MCH 28.5 pg (28.0-34.0) 07/26/21 18:45 MCHC 29.7 g/dL (30.0-36.0) L 07/26/21 18:45 RDW 16.5 % (12.1-15.1) H 07/26/21 18:45 Plt Count 155 10^3/cmm (130-400) 07/26/21 18:45 MPV 12.5 fL (7.4-10.4) H 07/26/21 18:45 Neut % (Auto) 53.6 % 07/26/21 18:45 Lymph % (Auto) 40.8 % 07/26/21 18:45 [place] % (Auto) 4.0 % 07/26/21 18:45 Eos % (Auto) 0.7 % 07/26/21 18:45 Baso % (Auto) 0.3 % 07/26/21 18:45 Neut # (Auto) 6.69 10^3/uL (1.8-7.7) 07/26/21 18:45 Lymph # (Auto) 5.1 10^3/uL (0.8-4.8) H 07/26/21 18:45 [place] # (Auto) 0.5 10^3/uL (0.2-0.9) 07/26/21 18:45 Eos # (Auto) 0.1 10^3/uL (0.0-0.8) 07/26/21 18:45 Baso # (Auto) 0.0 10^3/uL (0.0-0.1) 07/26/21 18:45 Nucleated RBC % (auto) 0 % 07/26/21 18:45 Nucleated RBCs # 0.0 /100WBC 07/26/21 18:45 Sodium 136 mmol/L (136-145) 07/26/21 18:45 Potassium 6.3 mmol/L (3.5-5.1) H 07/26/21 18:45 Chloride 104 mmol/L (98-107) 07/26/21 18:45 Carbon Dioxide 9 mmol/L (22-29) L 07/26/21 18:45 Anion Gap 29.3 (5-19) H 07/26/21 18:45 BUN 126 mg/dL (8-23) H* D 07/26/21 18:45 Creatinine 6.1 mg/dL (0.7-1.2) H* 07/26/21 18:45 GFR Calculation Not Reportable 07/26/21 18:45 Glucose 422 mg/dL (65-115) H 07/26/21 18:45 Calculated Osmolality 340 mOsm/kg (285-295) H 07/26/21 18:45 Calcium 7.5 mg/dL (8.5-10.5) L 07/26/21 18:45 Total Bilirubin 0.4 mg/dL (0.15-1.2) 07/26/21 18:45 AST 58 U/L (0-40) H 07/26/21 18:45 ALT 76 U/L (0-41) H 07/26/21 18:45 Alkaline Phosphatase 111 IU/L (40-130) 07/26/21 18:45 Troponin T Baseline 99 ng/L (0-15) H 07/26/21 18:45 NT-Pro-B Natriuret Pep 1413 pg/mL (0-450) H 07/26/21 18:45 Total Protein 5.8 g/dL (6.6-8.7) L 07/26/21 18:45 Albumin 3.8 g/dL (3.5-5.2) 07/26/21 18:45 Globulin 2.0 g/dL (1.3-4.6) 07/26/21 18:45 Critical Care Time Critical Care Time: Critical Care Time: Yes Total Critical Care Time: 50 Attestation: The high probability of a clinically significant, sudden or life threatening deterioration of the patient's cv system(s) required my full and direct attention, intervention and personal management. The critical care time is as shown. This time is in addition to time spent performing any reported procedures but includes the following: [x] Data and vital sign review and interpretation [x] Patient assessment, examination and intervention [x] Documentation [x] Medication orders and management Discharge Plan Discharge Patient Disposition: Clinical Impression: Cardiac arrest Condition: Stable Prescriptions: No Action pantoprazole [Protonix] 40 mg tablet,delayed release (DR/EC) 40 mg PO BID 14 Days Qty: 28 0RF Eliquis DVT-PE Treat 30D Start 5 mg (74 tabs) tablets,dose pack See Rx Instructions .ROUTE .COMPLEX Qty: 74 0RF Rx Instructions: orally per package directions Lantus Solostar U-100 Insulin 100 unit/mL (3 mL) insulin pen 15 unit SUBCUT DAILY@2200 Qty: 0 0RF Humalog KwikPen Insulin 100 unit/mL insulin pen See Rx Instructions .ROUTE .COMPLEX Qty: 15 0RF Rx Instructions: inject subcut,3 times daily after meals, based on sliding scale provided (DME) glucometer See Rx Instructions .Route .MEDSUPPLY Qty: 1 0RF Rx Instructions: Glucometer testing kit Lancet #100 Strips #100 labetalol 200 mg tablet 200 mg PO BID@1000,1800 0RF pramipexole 0.125 mg tablet 0.125 mg PO TID@10,14,18 0RF lisinopril 20 mg tablet 20 mg PO DAILY@1000 0RF mirtazapine 45 mg tablet 45 mg PO DAILY@1000 0RF folic acid 1 mg tablet 1 mg PO DAILY@1000 0RF hydrochlorothiazide 12.5 mg tablet 12.5 mg PO DAILY@1000 0RF Lumigan 0.01 % drops See Rx Instructions .ROUTE .COMPLEX 0RF Rx Instructions: drp use as directed pantoprazole [Protonix] 40 mg tablet,delayed release (DR/EC) 40 mg PO DAILY Qty: 60 0RF Referrals: Martha Paiz FNP [Primary Care Provider] - Coding Level of Care Code ED Coil [employer]ctor for g Fwd Exam Comprehensive
[2021-07-26 19:45] LABS: Osmolality Calculated 340 mOsm/kg (285-295)
[2021-07-26 19:46] LABS: Blood Urea Nitrogen 126 mg/dL (8-23); Carbon Dioxide 9 mmol/L (22-29)
[2021-07-26 20:01] LABS: Glucose Point of Care 401 mg/dL (70-110)
--- NOTE | 2021-07-26 20:23 | PC.NURSE ---
Pt.'s came in to the room and states that she and he did not want anything done. Dr. mckeon explained to her that cpr was being performed on arrival to the hospital and no end of life decisions were made. The of the patient states that she wanted all things stopped. When patient's pacer was stopped, the patient had no pulse noted and no respirations were noted without the mechanical vent.
--- NOTE | 2021-07-26 20:27 | PC.NURSE ---
Family friend is coming to give a ride home so that she is not driving at night by herself. has been notified at 's request.
--- NOTE | 2021-07-27 01:21 | PC.NURSE ---
MTS notified of pt . MTS and [facility]aving [facility] declined. Per pt , she requests to speak with daughter regarding arrangements before choosing a home.
== END 2021-07-26 22:45 | disposition expired ==
PROVIDERS: Emergency Medicine; Emergency Provider Emergency Medicine; PCP Nurse Practitioner Family
DX: I46.9 Cardiac arrest, cause unspecified (principal); Z79.01 Long term (current) use of anticoagulants; Z79.4 Long term (current) use of insulin; Z86.73 Personal history of transient ischemic attack (TIA), and cerebral infarction without residual deficits; E11.9 Type 2 diabetes mellitus without complications; Z85.51 Personal history of malignant neoplasm of bladder; Z85.89 Personal history of malignant neoplasm of other organs and systems
CPT/HCPCS: 31500; 36416; 36556; 71045; 80053; 82962; 83880; 84484; 85025; 94002; 94799; 96365; 96367; 96368; 99291; 99292; J0171; J0461; J1265; J3010; J3490; J7050